=== PATIENT | male | born 1975 | race Caucasian/White ===

== ENCOUNTER 2023-02-09 18:31 | Inpatient (IN) ==
[2023-02-09 19:07] LABS: ALT 23 U/L (7-52); AST 36 U/L (13-39); Albumin/Globulin Ratio 0.9 (1-3); Alkaline Phosphatase 92 U/L (35-149); Anion Gap 7 mmol/L (2-16); Blood Urea Nitrogen 13 mg/dL (6-24); CO2 Carbon Dioxide 18 mmol/L (22-32); Chloride 116 mmol/L (101-111); Creatinine, Serum 1.02 mg/dL (0.67-1.17); Globulin 3.4 g/dL (2-4); Glucose 91 mg/dL (70-100); Potassium 3.7 mmol/L (3.5-5.0); Sodium 141 mmol/L (135-145); Total Protein 6.4 g/dL (6.4-8.9); eGFR CKD-EPI 92.4 (>60)
[2023-02-09 19:08] LABS: Hematocrit 35.1 % (38-53); Hemoglobin 12.2 g/dL (13.2-16.3); Mean Corpuscular Hemoglobin 32.9 pg (27-33); Mean Corpuscular Hgb Conc 34.8 g/dL (31-36); Mean Corpuscular Volume 94.5 fL (80-97); Red Blood Count 3.72 10^6/uL (4.06-5.63); Red Cell Distribution Width 15.8 % (12-17); White Blood Count 6.5 10^3/uL (3.6-10.2)
[2023-02-09 19:24] LABS: Acetaminophen < 15 mcg/mL; Salicylate < 2.50 mg/dL (<30)
[2023-02-09 19:28] LABS: Alcohol, S 553 mg/dL (<13)
[2023-02-09 19:29] LABS: ABS Basophils 0.1 10^3/uL (0.0-0.1); ABS Eosinophils 0.3 10^3/uL (0.0-0.5); ABS Lymphocytes 1.9 10^3/uL (1.0-4.8); ABS Monocytes 0.6 10^3/uL (0.0-1.1); ABS Neutrophils 3.6 10^3/uL (1.5-7.6); ABS Nucleated RBC 0.02 10^3/ul; Eosinophil % 4.3 %; Mean Platelet Volume 9.5 fL (7.5-11.2); Nucleated Red Blood Cells % 0.3 /100 WBC (0.0-0.4); Platelet Count 51 10^3/uL (150-450)
[2023-02-09] MEDS ORDERED: Rocuronium 50 mg VIAL 10 mg/ml 5 ml VIAL (50 mg) ONE (20:03)
[2023-02-09] MEDS ORDERED: Succinylcholine 200 mg VIAL 20 mg/ml 10 ml VIAL (200 mg) ONE (20:04)
[2023-02-09] MEDS ORDERED: Etomidate 20 mg/10 ml 2 MG/ML 10 ml VIAL IV ONE (20:20)
[2023-02-09] MEDS ORDERED: Succinylcholine 200 mg VIAL 20 mg/ml 10 ml VIAL (200 mg) IV ONE (20:20)
[2023-02-09] MEDS: Propofol 10 mg/ml 100 ML BTL 1,000 MG/100 ML BTL IV SCH (20:30)
[2023-02-09 20:52] LABS: Urine Appearance Clear; Urine Bilirubin Negative (Negative); Urine Blood 2+ (Negative); Urine Color Yellow; Urine Glucose Negative (Negative); Urine Ketones Negative (Negative); Urine Nitrite Negative (Negative); Urine Protein Negative (Negative); Urine Specific Gravity 1.004 (1.002-1.030); Urine Urobilinogen Negative (Negative)
[2023-02-09 20:54] LABS: Urine Bacteria Absent (Absent); Urine Red Blood Cell Trace(0-2/hpf) (Absent); Urine White Blood Cell Absent (Absent)
[2023-02-09] MEDS ORDERED: Folic Acid IV 1 MG in NS 0.9% 50 ML 50 ML IV ONE (20:56)
[2023-02-09] MEDS ORDERED: Thiamine 100 MG/ML 2 ml VIAL 250 MG in NS 0.9% 100 ml BAG 100 ML IV SCH ×2 (21:00→22:00)
[2023-02-09] MEDS ORDERED: Pantoprazole VIAL 40 MG VIAL IV SCH (21:00)
[2023-02-09 21:19] LABS: Urine Benzodiazepine Screen None Detected (None Detect); Urine Cannabinoids Screen Presumptive Positive (None Detect); Urine Opiates Screen None Detected (None Detect)
[2023-02-09 21:20] LABS: Magnesium 1.9 mg/dL (1.9-2.7)
[2023-02-09] MEDS ORDERED: Potassium Phosphate IV 15 MMOL in NS 0.9% 250 ml 250 ML IVPB ONE (21:28)
[2023-02-09 21:49] LABS: PCO2 Arterial 38 mmHg (35-45); PO2 Arterial 352 mmHg (80-100)
[2023-02-09 21:52] LABS: Activated Partial Thrombo Time 42.9 seconds (26.0-38.0); INR 1.65 (0.88-1.18)
[2023-02-09] MEDS ORDERED: Lactated Ringers 1000 ml BAG 1,000 ML IV SCH (23:00)
[2023-02-09] MEDS: Chlorhexidine MOUTHWASH 0.12% 15 ML UDC SWISH SPIT SCH (23:08)
[2023-02-10] MEDS: Enoxaparin 40 MG/0.4 ML SYR SUBCUT SCH ×2 (00:13→21:14)
[2023-02-10] MEDS: Propofol 10 mg/ml 100 ML BTL 1,000 MG/100 ML BTL IV SCH ×5 (00:48→22:05)
[2023-02-10] MEDS: Chlorhexidine MOUTHWASH 0.12% 15 ML UDC SWISH SPIT SCH ×6 (02:53→21:15)
[2023-02-10 04:22] LABS: ABS Basophils 0.1 10^3/uL (0.0-0.1); ABS Eosinophils 0.2 10^3/uL (0.0-0.5); ABS Lymphocytes 2.7 10^3/uL (1.0-4.8); ABS Monocytes 0.3 10^3/uL (0.0-1.1); ABS Neutrophils 4.3 10^3/uL (1.5-7.6); ABS Nucleated RBC 0.01 10^3/ul; Eosinophil % 2.7 %; Hematocrit 35.8 % (38-53); Hemoglobin 12.5 g/dL (13.2-16.3); Lymphocyte % 35.2 %; Mean Corpuscular Hemoglobin 33.3 pg (27-33); Mean Corpuscular Hgb Conc 34.9 g/dL (31-36); Mean Corpuscular Volume 95.2 fL (80-97); Mean Platelet Volume 9.7 fL (7.5-11.2); Nucleated Red Blood Cells % 0.1 /100 WBC (0.0-0.4); Platelet Count 68 10^3/uL (150-450); Red Blood Count 3.76 10^6/uL (4.06-5.63); Red Cell Distribution Width 16.2 % (12-17); White Blood Count 7.6 10^3/uL (3.6-10.2)
[2023-02-10 04:36] LABS: Albumin 2.9 g/dL (3.2-5.2); Albumin/Globulin Ratio 0.9 (1-3); Calcium 7.8 mg/dL (8.6-10.3); Creatinine, Serum 1.42 mg/dL (0.67-1.17); Globulin 3.4 g/dL (2-4); Phosphorus 6.3 mg/dL (2.5-5.0); Potassium 4.4 mmol/L (3.5-5.0); Total Bilirubin 3.7 mg/dL (0.2-1.0); Total Protein 6.3 g/dL (6.4-8.9); eGFR CKD-EPI 62.1 (>60)
[2023-02-10] MEDS ORDERED: Lactated Ringers 1000 ml BAG 1,000 ML IV ONE ×2 (04:36→10:49)
[2023-02-10] MEDS ORDERED: Lorazepam PYXIS KEY PRN (05:48)
[2023-02-10] MEDS ORDERED: LORazepam 2 mg VIAL 1 ml ONE (05:50)
[2023-02-10] MEDS: LORazepam 2 mg VIAL 1 ml IV PUSH PRN ×2 (05:53→19:58)
[2023-02-10] MEDS: Dexmedetomidine 1,000 MCG in NS 0.9% 250 ml 240 ML IV SCH (07:49)
[2023-02-10] MEDS ORDERED: Multivitamins/Minerals TAB PO SCH (09:00)
[2023-02-10 10:26] LABS: Resp Rate 16
[2023-02-10 10:29] LABS: PCO2 Arterial 35 mmHg (35-45); PO2 Arterial 84 mmHg (80-100)
[2023-02-10] MEDS: Multivitamins ADULT w/MIN LIQ 15 ML UDC PO SCH (10:43)
[2023-02-10] MEDS: Pantoprazole VIAL 40 MG VIAL IV SCH ×2 (11:35→21:14)
[2023-02-10] MEDS: Polyethylene Glycol 3350 17 GM PACKET PO SCH (11:35)
[2023-02-10] MEDS: Lactated Ringers 1000 ml BAG 1,000 ML IV SCH ×2 (12:03→18:04)
[2023-02-10] MEDS ORDERED: Folic Acid IV 1 MG in NS 0.9% 50 ML 50 ML IV SCH (14:00)
[2023-02-10] MEDS ORDERED: Thiamine 100 MG/ML 2 ml VIAL 100 MG in NS 0.9% 50 ML 50 ML IV SCH (14:00)
[2023-02-10 14:46] LABS: ABS Eosinophils 0.1 10^3/uL (0.0-0.5); ABS Lymphocytes 1.1 10^3/uL (1.0-4.8); ABS Monocytes 0.3 10^3/uL (0.0-1.1); ABS Neutrophils 1.8 10^3/uL (1.5-7.6); Eosinophil % 2.7 %; Hematocrit 30.3 % (38-53); Hemoglobin 10.6 g/dL (13.2-16.3); Lymphocyte % 31.2 %; Mean Corpuscular Volume 94.2 fL (80-97); Mean Platelet Volume 9.9 fL (7.5-11.2); Nucleated Red Blood Cells % 0.1 /100 WBC (0.0-0.4); Platelet Count 42 10^3/uL (150-450); Red Blood Count 3.21 10^6/uL (4.06-5.63); White Blood Count 3.4 10^3/uL (3.6-10.2)
[2023-02-10 14:59] LABS: Magnesium 1.7 mg/dL (1.9-2.7); Phosphorus 4.8 mg/dL (2.5-5.0)
[2023-02-10 15:00] LABS: Calcium 7.4 mg/dL (8.6-10.3); Creatinine, Serum 1.46 mg/dL (0.67-1.17); Potassium 4.3 mmol/L (3.5-5.0); eGFR CKD-EPI 60.1 (>60)
[2023-02-10] MEDS ORDERED: FOMEPIZOLE IV ONE (15:00)
[2023-02-10] MEDS ORDERED: NS 0.9% IV ONE (15:00)
[2023-02-10] MEDS: Thiamine 100 MG/ML 2 ml VIAL 100 MG in NS 0.9% 50 ML 50 ML IV SCH ×2 (16:13→21:15)
[2023-02-10] MEDS: Pyridoxine INJ 100 MG/ML VIAL IV SCH ×2 (16:26→21:32)
[2023-02-10 18:04] LABS: Osmolality Serum 404 mOsm/kg (275-295)
[2023-02-10] MEDS ORDERED: Phytonadione IV (Adult) 10 MG in NS 0.9% 50 ML 50 ML IV SCH (20:00)
[2023-02-10 20:35] LABS: INR 1.69 (0.88-1.18)
[2023-02-10 20:42] LABS: Albumin 2.5 g/dL (3.2-5.2); Albumin/Globulin Ratio 0.8 (1-3); Calcium 7.4 mg/dL (8.6-10.3); Creatinine, Serum 1.14 mg/dL (0.67-1.17); Globulin 3.1 g/dL (2-4); Potassium 4.2 mmol/L (3.5-5.0); Total Bilirubin 2.6 mg/dL (0.2-1.0); Total Protein 5.6 g/dL (6.4-8.9); eGFR CKD-EPI 80.8 (>60)
[2023-02-10] MEDS ORDERED: Pantoprazole VIAL 40 MG VIAL IV SCH (21:00)
[2023-02-10] MEDS: Senna TAB 8.6 mg TAB PO SCH (21:14)
[2023-02-10 21:23] LABS: Osmolality Serum 465 mOsm/kg (275-295)
[2023-02-11] MEDS: Lactated Ringers 1000 ml BAG 1,000 ML IV SCH ×2 (00:48→07:44)
[2023-02-11 01:27] LABS: Osmolality Serum 382 mOsm/kg (275-295)
[2023-02-11] MEDS: FOMEPIZOLE IV SCH ×2 (02:28→14:41)
[2023-02-11] MEDS: NS 0.9% IV SCH ×2 (02:28→14:41)
[2023-02-11] MEDS: Chlorhexidine MOUTHWASH 0.12% 15 ML UDC SWISH SPIT SCH ×6 (02:28→20:48)
[2023-02-11] MEDS: Pyridoxine INJ 100 MG/ML VIAL IV SCH ×4 (02:31→20:30)
[2023-02-11] MEDS: Thiamine 100 MG/ML 2 ml VIAL 100 MG in NS 0.9% 50 ML 50 ML IV SCH ×4 (03:10→20:30)
[2023-02-11 05:07] LABS: ABS Eosinophils 0.1 10^3/uL (0.0-0.5); ABS Lymphocytes 0.6 10^3/uL (1.0-4.8); ABS Monocytes 0.5 10^3/uL (0.0-1.1); ABS Neutrophils 3.5 10^3/uL (1.5-7.6); Eosinophil % 1.3 %; Hematocrit 29.9 % (38-53); Hemoglobin 10.7 g/dL (13.2-16.3); Lymphocyte % 12.4 %; Mean Corpuscular Hemoglobin 34.1 pg (27-33); Mean Corpuscular Hgb Conc 35.8 g/dL (31-36); Mean Corpuscular Volume 95.2 fL (80-97); Mean Platelet Volume 9.9 fL (7.5-11.2); Nucleated Red Blood Cells % 0.1 /100 WBC (0.0-0.4); Platelet Count 34 10^3/uL (150-450); Red Blood Count 3.14 10^6/uL (4.06-5.63); Red Cell Distribution Width 15.6 % (12-17); White Blood Count 4.7 10^3/uL (3.6-10.2)
[2023-02-11 05:23] LABS: Albumin 2.5 g/dL (3.2-5.2); Albumin/Globulin Ratio 0.8 (1-3); Calcium 7.3 mg/dL (8.6-10.3); Creatinine, Serum 0.96 mg/dL (0.67-1.17); Globulin 3.1 g/dL (2-4); Magnesium 1.6 mg/dL (1.9-2.7); Phosphorus 3.4 mg/dL (2.5-5.0); Total Bilirubin 2.9 mg/dL (0.2-1.0); Total Protein 5.6 g/dL (6.4-8.9); eGFR CKD-EPI 99.3 (>60)
[2023-02-11] MEDS ORDERED: Magnesium Sulf 4 GM/100 ML IV 4,000 MG/100 ML BAG IVPB ONE (05:28)
[2023-02-11] MEDS: Propofol 10 mg/ml 100 ML BTL 1,000 MG/100 ML BTL IV SCH ×2 (07:13→17:35)
[2023-02-11] MEDS ORDERED: Lactulose 30 ml UDC NG TUBE ONE (07:21)
[2023-02-11] MEDS: Pantoprazole VIAL 40 MG VIAL IV SCH ×2 (08:17→20:30)
[2023-02-11] MEDS: Polyethylene Glycol 3350 17 GM PACKET PO SCH (08:17)
[2023-02-11] MEDS: Multivitamins ADULT w/MIN LIQ 15 ML UDC PO SCH (08:17)
[2023-02-11] MEDS ORDERED: Lactated Ringers 1000 ml BAG 1,000 ML IV SCH (09:23)
[2023-02-11] MEDS: LORazepam 2 mg VIAL 1 ml IV PUSH PRN ×2 (12:34→21:22)
[2023-02-11] MEDS: Dexmedetomidine 1,000 MCG in NS 0.9% 250 ml 240 ML IV SCH (12:48)
[2023-02-11 14:33] LABS: INR 1.61 (0.88-1.18)
[2023-02-11] MEDS: Senna TAB 8.6 mg TAB PO SCH (20:30)
[2023-02-12] MEDS: LORazepam 2 mg VIAL 1 ml IV PUSH PRN ×4 (00:23→23:17)
[2023-02-12] MEDS: Chlorhexidine MOUTHWASH 0.12% 15 ML UDC SWISH SPIT SCH ×4 (01:14→16:12)
[2023-02-12] MEDS: Pyridoxine INJ 100 MG/ML VIAL IV SCH ×4 (03:18→20:49)
[2023-02-12] MEDS: Thiamine 100 MG/ML 2 ml VIAL 100 MG in NS 0.9% 50 ML 50 ML IV SCH ×4 (03:19→20:49)
[2023-02-12] MEDS: NS 0.9% IV SCH ×2 (03:21→15:38)
[2023-02-12] MEDS: FOMEPIZOLE IV SCH ×2 (03:21→15:38)
[2023-02-12] MEDS: Propofol 10 mg/ml 100 ML BTL 1,000 MG/100 ML BTL IV SCH (04:52)
[2023-02-12] MEDS: Dexmedetomidine 1,000 MCG in NS 0.9% 250 ml 240 ML IV SCH ×2 (05:07→18:30)
[2023-02-12 05:29] LABS: Hematocrit 29.2 % (38-53); Hemoglobin 10.5 g/dL (13.2-16.3); Mean Corpuscular Hgb Conc 36.1 g/dL (31-36); Mean Corpuscular Volume 94.2 fL (80-97); Mean Platelet Volume 9.3 fL (7.5-11.2); Platelet Count 26 10^3/uL (150-450); Red Cell Distribution Width 15.4 % (12-17); White Blood Count 3.3 10^3/uL (3.6-10.2)
[2023-02-12 05:34] LABS: INR 1.78 (0.88-1.18)
[2023-02-12 05:42] LABS: Albumin 2.4 g/dL (3.2-5.2); Albumin/Globulin Ratio 0.8 (1-3); Calcium 7.7 mg/dL (8.6-10.3); Creatinine, Serum 0.82 mg/dL (0.67-1.17); Globulin 3.2 g/dL (2-4); Phosphorus 2.1 mg/dL (2.5-5.0); Potassium 4.1 mmol/L (3.5-5.0); Total Bilirubin 2.9 mg/dL (0.2-1.0); Total Protein 5.6 g/dL (6.4-8.9); eGFR CKD-EPI 110.4 (>60)
[2023-02-12 05:51] LABS: ABS Eosinophils 0.1 10^3/uL (0.0-0.5); ABS Lymphocytes 0.6 10^3/uL (1.0-4.8); ABS Monocytes 0.4 10^3/uL (0.0-1.1); ABS Neutrophils 2.2 10^3/uL (1.5-7.6); Eosinophil % 3.5 %; Lymphocyte % 17.4 %; Nucleated Red Blood Cells % 0.1 /100 WBC (0.0-0.4)
[2023-02-12] MEDS: Multivitamins ADULT w/MIN LIQ 15 ML UDC PO SCH (08:20)
[2023-02-12] MEDS: Polyethylene Glycol 3350 17 GM PACKET PO SCH (08:20)
[2023-02-12] MEDS: Pantoprazole VIAL 40 MG VIAL IV SCH ×2 (08:20→20:21)
[2023-02-12] MEDS ORDERED: Furosemide 40 mg/4 ml IV VIAL IV ONE (10:23)
[2023-02-12] MEDS ORDERED: Lactulose 30 ml UDC PO ONE (10:24)
[2023-02-12] MEDS ORDERED: Potassium Phosphate IV 10 MMOL in NS 0.9% 250 ml 250 ML IVPB ONE (10:25)
[2023-02-12] MEDS ORDERED: Potassium Phosphate IV 15 MMOL in NS 0.9% 250 ml 250 ML IVPB ONE (10:26)
[2023-02-12] MEDS: Phytonadione Oral Solution 5 MG/25 ML UDC PO SCH ×2 (10:55→19:47)
[2023-02-12] MEDS ORDERED: Haloperidol 5 mg/ml SDV IV/IM 5 MG/ML AMP IM PRN (15:33)
[2023-02-12] MEDS ORDERED: Haloperidol 5 mg/ml SDV IV/IM 5 MG/ML AMP IVPB PRN (15:36)
[2023-02-12] MEDS ORDERED: Haloperidol 5 mg/ml SDV IV/IM 5 MG/ML AMP ONE (15:36)
[2023-02-12] MEDS: Senna TAB 8.6 mg TAB PO SCH (20:29)
[2023-02-12] MEDS ORDERED: Ondansetron 4 mg VIAL 2 MG/ML 2 ml VIAL IV PRN (23:27)
[2023-02-12] MEDS ORDERED: Ondansetron 4 mg VIAL 2 MG/ML 2 ml VIAL ONE (23:28)
[2023-02-13] MEDS: LORazepam 2 mg VIAL 1 ml IV PUSH PRN ×5 (01:32→21:59)
[2023-02-13] MEDS: Phytonadione Oral Solution 5 MG/25 ML UDC PO SCH (02:31)
[2023-02-13] MEDS ORDERED: Furosemide 40 mg/4 ml IV VIAL IV SLOW PU ONE (02:34)
[2023-02-13] MEDS: Thiamine 100 MG/ML 2 ml VIAL 100 MG in NS 0.9% 50 ML 50 ML IV SCH ×4 (02:43→20:28)
[2023-02-13] MEDS: Pyridoxine INJ 100 MG/ML VIAL IV SCH ×4 (02:45→20:29)
[2023-02-13] MEDS: Dexmedetomidine 1,000 MCG in NS 0.9% 250 ml 240 ML IV SCH ×2 (04:31→13:25)
[2023-02-13] MEDS: Phytonadione 10 mg in 50 mL NS over 30 min IV SCH ×2 (04:32→12:01)
[2023-02-13 04:43] LABS: ABS Eosinophils 0.1 10^3/uL (0.0-0.5); ABS Lymphocytes 0.9 10^3/uL (1.0-4.8); ABS Monocytes 0.3 10^3/uL (0.0-1.1); ABS Neutrophils 2.4 10^3/uL (1.5-7.6); Eosinophil % 3.7 %; Hematocrit 30.3 % (38-53); Mean Corpuscular Hemoglobin 34.3 pg (27-33); Mean Corpuscular Hgb Conc 36.3 g/dL (31-36); Mean Corpuscular Volume 94.5 fL (80-97); Mean Platelet Volume 10.5 fL (7.5-11.2); Platelet Count 37 10^3/uL (150-450); White Blood Count 3.8 10^3/uL (3.6-10.2)
[2023-02-13 04:46] LABS: INR 1.83 (0.88-1.18)
[2023-02-13 04:50] LABS: Calcium 7.5 mg/dL (8.6-10.3); Creatinine, Serum 0.91 mg/dL (0.67-1.17); Potassium 3.8 mmol/L (3.5-5.0); eGFR CKD-EPI 105.9 (>60)
[2023-02-13 05:07] LABS: Magnesium 1.5 mg/dL (1.9-2.7)
[2023-02-13] MEDS ORDERED: Magnesium Sulf 4 GM/100 ML IV 4,000 MG/100 ML BAG IVPB ONE ×2 (06:12→07:03)
[2023-02-13 06:28] LABS: Phosphorus 3.1 mg/dL (2.5-5.0)
[2023-02-13] MEDS ORDERED: Potassium Chlor 20 meq TAB.ER PO ONE (07:03)
[2023-02-13] MEDS: Multivitamins ADULT w/MIN LIQ 15 ML UDC PO SCH (09:14)
[2023-02-13] MEDS: Pantoprazole VIAL 40 MG VIAL IV SCH (09:17)
[2023-02-13] MEDS: Polyethylene Glycol 3350 17 GM PACKET PO SCH (09:21)
[2023-02-13] MEDS ORDERED: Pantoprazole VIAL 40 MG VIAL IV SCH (10:00)
[2023-02-13] MEDS ORDERED: NS 0.9% 1000 ml BAG 1,000 ML IV SCH (10:30)
[2023-02-13] MEDS ORDERED: LORazepam 2 mg VIAL 1 ml IV PUSH SCH (11:00)
[2023-02-13] MEDS: FOMEPIZOLE IV SCH (11:55)
[2023-02-13] MEDS: NS 0.9% IV SCH (11:55)
[2023-02-13] MEDS ORDERED: Senna TAB 8.6 mg TAB PO PRN (15:45)
[2023-02-13] MEDS: Lactulose 30 ml UDC NG TUBE SCH ×2 (16:57→20:29)
[2023-02-13 18:20] LABS: Calcium 7.7 mg/dL (8.6-10.3); Creatinine, Serum 0.95 mg/dL (0.67-1.17); Potassium 3.9 mmol/L (3.5-5.0); eGFR CKD-EPI 100.6 (>60)
[2023-02-13] MEDS ORDERED: Vancomycin 1,500 MG in NS 0.9% 250 ml 250 ML IVPB ONE (20:03)
[2023-02-13] MEDS ORDERED: LORazepam 2 mg VIAL 1 ml ONE (20:41)
[2023-02-13] MEDS ORDERED: LORazepam 2 mg VIAL 1 ml IV PUSH ONE (20:45)
[2023-02-13] MEDS ORDERED: Haloperidol 5 mg/ml SDV IV/IM 5 MG/ML AMP ONE (20:48)
[2023-02-13] MEDS ORDERED: Lactulose 30 ml UDC NG TUBE SCH (21:00)
[2023-02-13] MEDS ORDERED: Senna TAB 8.6 mg TAB PO SCH (21:00)
[2023-02-13] MEDS ORDERED: Lorazepam PYXIS KEY PRN (21:20)
[2023-02-13] MEDS ORDERED: Haloperidol 5 mg/ml SDV IV/IM 5 MG/ML AMP IM PRN (21:25)
[2023-02-14] MEDS: Dexmedetomidine 1,000 MCG in NS 0.9% 250 ml 240 ML IV SCH ×2 (00:45→12:30)
[2023-02-14] MEDS: Pyridoxine INJ 100 MG/ML VIAL IV SCH ×4 (03:09→21:30)
[2023-02-14] MEDS: Thiamine 100 MG/ML 2 ml VIAL 100 MG in NS 0.9% 50 ML 50 ML IV SCH ×4 (03:09→21:29)
[2023-02-14] MEDS: LORazepam 2 mg VIAL 1 ml IV PUSH PRN ×4 (03:26→21:30)
[2023-02-14 05:16] LABS: ABS Eosinophils 0.1 10^3/uL (0.0-0.5); ABS Lymphocytes 0.5 10^3/uL (1.0-4.8); ABS Monocytes 0.3 10^3/uL (0.0-1.1); ABS Neutrophils 1.7 10^3/uL (1.5-7.6); Eosinophil % 5.3 %; Hematocrit 28.1 % (38-53); Hemoglobin 9.9 g/dL (13.2-16.3); Lymphocyte % 20.5 %; Mean Corpuscular Hemoglobin 33.4 pg (27-33); Mean Corpuscular Hgb Conc 35.4 g/dL (31-36); Mean Corpuscular Volume 94.5 fL (80-97); Mean Platelet Volume 10.6 fL (7.5-11.2); Platelet Count 32 10^3/uL (150-450); Red Blood Count 2.97 10^6/uL (4.06-5.63); Red Cell Distribution Width 15.1 % (12-17); White Blood Count 2.7 10^3/uL (3.6-10.2)
[2023-02-14 05:21] LABS: INR 1.83 (0.88-1.18)
[2023-02-14 05:34] LABS: Calcium 7.5 mg/dL (8.6-10.3); Creatinine, Serum 0.87 mg/dL (0.67-1.17); Magnesium 1.8 mg/dL (1.9-2.7); Phosphorus 3.4 mg/dL (2.5-5.0); Potassium 3.9 mmol/L (3.5-5.0); eGFR CKD-EPI 108.4 (>60)
[2023-02-14] MEDS: Lactulose 30 ml UDC NG TUBE SCH ×3 (07:05→21:28)
[2023-02-14] MEDS: Multivitamins ADULT w/MIN LIQ 15 ML UDC PO SCH (07:05)
[2023-02-14] MEDS ORDERED: KCL 10 MEQ/50 ML IVPREMIX 10 MEQ/50 ML BAG IV ONE (07:16)
[2023-02-14] MEDS ORDERED: Magnesium Sulfate IV 3 GM in NS 0.9% 100 ml BAG 100 ML IVPB ONE (07:16)
[2023-02-14] MEDS: Polyethylene Glycol 3350 17 GM PACKET PO SCH (07:36)
[2023-02-14] MEDS: Pantoprazole VIAL 40 MG VIAL IV SCH (10:10)
[2023-02-14] MEDS ORDERED: Lactated Ringers 1000 ml BAG 1,000 ML IV ONE (10:11)
[2023-02-14] MEDS: NS 0.9% IV SCH ×3 (11:00→21:29)
[2023-02-14] MEDS: FOMEPIZOLE IV SCH ×3 (11:00→21:29)
[2023-02-14] MEDS: Metoclopramide 5 MG/ML VIAL (10 mg) IV SCH (11:25)
[2023-02-14 11:56] LABS: Alcohol, S < 13 mg/dL (<13)
[2023-02-14 12:20] LABS: Glucose 130 mg/dL (70-100)
[2023-02-14] MEDS ORDERED: Furosemide 20 mg/2 ml IV VIAL IV ONE (13:56)
[2023-02-14] MEDS: Haloperidol 5 mg/ml SDV IV/IM 5 MG/ML AMP IV SLOW PU PRN (17:50)
[2023-02-14] MEDS ORDERED: LORazepam 2 mg VIAL 1 ml IV PUSH ONE (18:13)
[2023-02-14] MEDS ORDERED: Lorazepam PYXIS KEY PRN (18:13)
[2023-02-15] MEDS: Metoclopramide 5 MG/ML VIAL (10 mg) IV SCH ×3 (01:15→22:26)
[2023-02-15] MEDS: LORazepam 2 mg VIAL 1 ml IV PUSH PRN (01:16)
[2023-02-15] MEDS: Pyridoxine INJ 100 MG/ML VIAL IV SCH ×4 (03:12→21:17)
[2023-02-15] MEDS: Thiamine 100 MG/ML 2 ml VIAL 100 MG in NS 0.9% 50 ML 50 ML IV SCH ×4 (03:12→21:45)
[2023-02-15] MEDS: Dexmedetomidine 1,000 MCG in NS 0.9% 250 ml 240 ML IV SCH (04:32)
[2023-02-15 05:17] LABS: Hematocrit 30.5 % (38-53); Hemoglobin 10.8 g/dL (13.2-16.3); Mean Corpuscular Hemoglobin 33.5 pg (27-33); Mean Corpuscular Hgb Conc 35.5 g/dL (31-36); Mean Corpuscular Volume 94.3 fL (80-97); Mean Platelet Volume 9.8 fL (7.5-11.2); Platelet Count 44 10^3/uL (150-450); Red Blood Count 3.23 10^6/uL (4.06-5.63); Red Cell Distribution Width 15.4 % (12-17)
[2023-02-15 05:21] LABS: INR 1.85 (0.88-1.18)
[2023-02-15] MEDS ORDERED: Furosemide 40 mg/4 ml IV VIAL IV ONE (05:28)
[2023-02-15 05:32] LABS: Albumin 2.5 g/dL (3.2-5.2); Albumin/Globulin Ratio 0.7 (1-3); Calcium 7.7 mg/dL (8.6-10.3); Creatinine, Serum 0.99 mg/dL (0.67-1.17); Globulin 3.4 g/dL (2-4); Magnesium 1.9 mg/dL (1.9-2.7); Phosphorus 3.7 mg/dL (2.5-5.0); Potassium 3.7 mmol/L (3.5-5.0); Total Protein 5.9 g/dL (6.4-8.9); eGFR CKD-EPI 95.7 (>60)
[2023-02-15 05:46] LABS: ABS Eosinophils 0.1 10^3/uL (0.0-0.5); ABS Lymphocytes 0.7 10^3/uL (1.0-4.8); ABS Monocytes 0.6 10^3/uL (0.0-1.1); ABS Neutrophils 5.5 10^3/uL (1.5-7.6); Eosinophil % 1.4 %; Lymphocyte % 10.6 %
[2023-02-15 06:00] LABS: PCO2 Arterial 39 mmHg (35-45); PO2 Arterial 77 mmHg (80-100)
[2023-02-15] MEDS: Lactulose 30 ml UDC NG TUBE SCH ×3 (06:06→22:26)
[2023-02-15] MEDS ORDERED: LORazepam 2 mg VIAL 1 ml IV PUSH PRN (06:28)
[2023-02-15] MEDS ORDERED: Lorazepam PYXIS KEY PRN (06:28)
[2023-02-15] MEDS ORDERED: Magnesium Sulfate 2 gm BAG 2 GM/50 ML BAG IVPB ONE (07:28)
[2023-02-15] MEDS: Multivitamins ADULT w/MIN LIQ 15 ML UDC PO SCH (08:05)
[2023-02-15] MEDS: Pantoprazole VIAL 40 MG VIAL IV SCH ×2 (08:12→19:35)
[2023-02-15] MEDS: Polyethylene Glycol 3350 17 GM PACKET PO SCH (08:19)
[2023-02-15] MEDS: Haloperidol 5 mg/ml SDV IV/IM 5 MG/ML AMP IV SLOW PU PRN (08:34)
[2023-02-15] MEDS: KCL 20 MEQ/100 ML IVPREMIX 20 MEQ/100 ML BAG IV SCH ×2 (09:10→11:30)
[2023-02-15 09:35] LABS: Anion Gap 6 mmol/L (2-16); Blood Urea Nitrogen 18 mg/dL (6-24); CO2 Carbon Dioxide 23 mmol/L (22-32); Calcium 7.7 mg/dL (8.6-10.3); Chloride 117 mmol/L (101-111); Glucose 124 mg/dL (70-100); Potassium 3.6 mmol/L (3.5-5.0); Sodium 146 mmol/L (135-145)
[2023-02-15 09:49] LABS: Alcohol, S < 13 mg/dL (<13)
[2023-02-15 10:38] LABS: eGFR CKD-EPI 84.4 (>60)
[2023-02-15 10:56] LABS: Osmolality Serum 319 mOsm/kg (275-295)
[2023-02-15] MEDS ORDERED: LORazepam 2 mg VIAL 1 ml IV PUSH SCH (11:26)
[2023-02-15] MEDS: FOMEPIZOLE IV SCH (11:38)
[2023-02-15] MEDS: NS 0.9% IV SCH (11:38)
[2023-02-15] MEDS ORDERED: Rocuronium 50 mg VIAL 10 mg/ml 5 ml VIAL (50 mg) ONE ×2 (12:06→17:59)
[2023-02-15] MEDS ORDERED: Etomidate 40 mg/20 ml (2 MG/ML) 20 ml VIAL (40 mg) ONE (12:06)
[2023-02-15] MEDS ORDERED: Piperacillin/Tazobac ADVAN 3.375 GM in NS 0.9% 100 ml BAG 100 ML IV ONE (13:49)
[2023-02-15] MEDS ORDERED: Vancomycin per Pharmacy 1 EA NOTE FOLLOW UP SCH (14:00)
[2023-02-15] MEDS ORDERED: Zosyn per Pharmacy NOTE FOLLOW UP SCH (14:00)
[2023-02-15] MEDS ORDERED: Vancomycin 1,250 MG in NS 0.9% 250 ml 250 ML IVPB ONE (14:15)
[2023-02-15] MEDS: Acetaminophen IV 1 GM/100ML 1,000 MG/100 ML BAG IV PRN (15:07)
[2023-02-15] MEDS ORDERED: Furosemide 20 mg/2 ml IV VIAL IV ONE (17:40)
[2023-02-15] MEDS ORDERED: Metoprolol Tartrate 5 mg VIAL 5 ml VIAL (1 mg/ml) ONE (17:43)
[2023-02-15] MEDS ORDERED: Furosemide 20 mg/2 ml IV VIAL ONE (17:43)
[2023-02-15] MEDS: Metoprolol Tartrate 5 mg VIAL 5 ml VIAL (1 mg/ml) IV PRN (17:44)
[2023-02-15] MEDS ORDERED: Propofol 10 mg/ml 100 ML BTL 1,000 MG/100 ML BTL ONE (18:00)
[2023-02-15 18:01] LABS: PCO2 Arterial 45 mmHg (35-45)
[2023-02-15 18:04] LABS: PO2 Arterial 54 mmHg (80-100)
[2023-02-15] MEDS: Propofol 10 mg/ml 100 ML BTL 1,000 MG/100 ML BTL IV SCH ×2 (18:15→22:55)
[2023-02-15] MEDS ORDERED: fentaNYL 100 mcg/2 ml 50 MCG/ML VIAL IV SLOW PU PRN (18:21)
[2023-02-15] MEDS: ZOSYN 3.375 GM Q8H per EXTENDED INFUSION IV SCH (18:51)
[2023-02-15] MEDS: Chlorhexidine MOUTHWASH 0.12% 15 ML UDC SWISH SPIT SCH ×2 (19:35→23:10)
[2023-02-15 21:00] LABS: Resp Rate 20
[2023-02-15 21:02] LABS: PCO2 Arterial 36 mmHg (35-45); PO2 Arterial 151 mmHg (80-100)
[2023-02-16] MEDS: Chlorhexidine MOUTHWASH 0.12% 15 ML UDC SWISH SPIT SCH ×6 (02:05→21:16)
[2023-02-16] MEDS: ZOSYN 3.375 GM Q8H per EXTENDED INFUSION IV SCH ×3 (02:30→17:40)
[2023-02-16] MEDS: Vancomycin 1,250 MG in NS 0.9% 250 ml 250 ML IVPB SCH ×2 (02:31→14:45)
[2023-02-16] MEDS: Thiamine 100 MG/ML 2 ml VIAL 100 MG in NS 0.9% 50 ML 50 ML IV SCH ×4 (02:38→21:16)
[2023-02-16] MEDS: Pyridoxine INJ 100 MG/ML VIAL IV SCH ×4 (02:40→21:48)
[2023-02-16 04:18] LABS: ABS Basophils 0.1 10^3/uL (0.0-0.1); ABS Eosinophils 0.2 10^3/uL (0.0-0.5); ABS Monocytes 1.1 10^3/uL (0.0-1.1); ABS Neutrophils 9.8 10^3/uL (1.5-7.6); Eosinophil % 1.3 %; Hematocrit 27.7 % (38-53); Hemoglobin 9.8 g/dL (13.2-16.3); Lymphocyte % 8.5 %; Mean Corpuscular Hemoglobin 33.5 pg (27-33); Mean Corpuscular Hgb Conc 35.3 g/dL (31-36); Mean Corpuscular Volume 94.7 fL (80-97); Mean Platelet Volume 8.8 fL (7.5-11.2); Platelet Count 55 10^3/uL (150-450); Red Blood Count 2.93 10^6/uL (4.06-5.63); Red Cell Distribution Width 15.3 % (12-17); White Blood Count 12.2 10^3/uL (3.6-10.2)
[2023-02-16] MEDS: Propofol 10 mg/ml 100 ML BTL 1,000 MG/100 ML BTL IV SCH ×4 (04:32→21:23)
[2023-02-16 04:33] LABS: Calcium 7.4 mg/dL (8.6-10.3); Creatinine, Serum 1.32 mg/dL (0.67-1.17); Magnesium 1.9 mg/dL (1.9-2.7); Phosphorus 3.1 mg/dL (2.5-5.0); Potassium 3.6 mmol/L (3.5-5.0); eGFR CKD-EPI 67.8 (>60)
[2023-02-16] MEDS: Lactulose 30 ml UDC NG TUBE SCH ×3 (05:25→17:47)
[2023-02-16] MEDS: Multivitamins ADULT w/MIN LIQ 15 ML UDC PO SCH (07:40)
[2023-02-16] MEDS: Polyethylene Glycol 3350 17 GM PACKET PO SCH (07:57)
[2023-02-16] MEDS: KCL 20 MEQ/100 ML IVPREMIX 20 MEQ/100 ML BAG IV SCH ×2 (08:00→10:05)
[2023-02-16] MEDS ORDERED: Magnesium Sulfate 2 gm BAG 2 GM/50 ML BAG IVPB ONE (09:41)
[2023-02-16] MEDS: Metoclopramide 5 MG/ML VIAL (10 mg) IV SCH ×2 (10:08→21:16)
[2023-02-16] MEDS: Enoxaparin 40 MG/0.4 ML SYR SUBCUT SCH (11:48)
[2023-02-16] MEDS ORDERED: Midazolam 2 mg/2 ml VIAL 1 mg/ml 2 ml VIAL (2 mg) ONE ×2 (13:17→13:40)
[2023-02-16] MEDS ORDERED: Midazolam 2 mg/2 ml VIAL 1 mg/ml 2 ml VIAL (2 mg) IV SLOW PU ONE ×2 (13:20→13:45)
[2023-02-16] MEDS: Acetaminophen IV 1 GM/100ML 1,000 MG/100 ML BAG IV PRN (15:25)
[2023-02-16] MEDS: Pantoprazole VIAL 40 MG VIAL IV SCH (17:39)
[2023-02-17] MEDS: Chlorhexidine MOUTHWASH 0.12% 15 ML UDC SWISH SPIT SCH ×6 (01:36→21:46)
[2023-02-17] MEDS: Lactulose 30 ml UDC NG TUBE SCH ×5 (01:36→21:46)
[2023-02-17] MEDS: ZOSYN 3.375 GM Q8H per EXTENDED INFUSION IV SCH ×3 (01:37→17:27)
[2023-02-17] MEDS: Vancomycin 1,250 MG in NS 0.9% 250 ml 250 ML IVPB SCH ×2 (01:39→15:43)
[2023-02-17] MEDS: Pyridoxine INJ 100 MG/ML VIAL IV SCH ×2 (01:41→09:41)
[2023-02-17] MEDS: Thiamine 100 MG/ML 2 ml VIAL 100 MG in NS 0.9% 50 ML 50 ML IV SCH ×2 (01:43→08:32)
[2023-02-17] MEDS: Propofol 10 mg/ml 100 ML BTL 1,000 MG/100 ML BTL IV SCH ×2 (03:14→10:42)
[2023-02-17 05:17] LABS: ABS Basophils 0.1 10^3/uL (0.0-0.1); ABS Eosinophils 0.5 10^3/uL (0.0-0.5); ABS Lymphocytes 1.2 10^3/uL (1.0-4.8); ABS Monocytes 0.9 10^3/uL (0.0-1.1); ABS Neutrophils 8.1 10^3/uL (1.5-7.6); ABS Nucleated RBC 0.04 10^3/ul; Eosinophil % 4.8 %; Hemoglobin 10.9 g/dL (13.2-16.3); Lymphocyte % 10.7 %; Mean Corpuscular Hemoglobin 33.4 pg (27-33); Mean Corpuscular Hgb Conc 35.1 g/dL (31-36); Mean Platelet Volume 9.1 fL (7.5-11.2); Nucleated Red Blood Cells % 0.3 /100 WBC (0.0-0.4); Platelet Count 67 10^3/uL (150-450); Red Blood Count 3.26 10^6/uL (4.06-5.63); White Blood Count 10.9 10^3/uL (3.6-10.2)
[2023-02-17] MEDS: Acetaminophen IV 1 GM/100ML 1,000 MG/100 ML BAG IV PRN ×2 (05:23→21:46)
[2023-02-17 05:38] LABS: Albumin 2.4 g/dL (3.2-5.2); Albumin/Globulin Ratio 0.7 (1-3); Calcium 7.6 mg/dL (8.6-10.3); Creatinine, Serum 1.18 mg/dL (0.67-1.17); Direct Bilirubin 2.2 mg/dL (0.03-0.18); Globulin 3.5 g/dL (2-4); Magnesium 2.3 mg/dL (1.9-2.7); Potassium 3.6 mmol/L (3.5-5.0); Total Bilirubin 4.2 mg/dL (0.2-1.0); Total Protein 5.9 g/dL (6.4-8.9); eGFR CKD-EPI 77.5 (>60)
[2023-02-17] MEDS: Multivitamins ADULT w/MIN LIQ 15 ML UDC PO SCH (08:04)
[2023-02-17] MEDS: Polyethylene Glycol 3350 17 GM PACKET PO SCH (08:05)
[2023-02-17] MEDS: KCL 20 MEQ/100 ML IVPREMIX 20 MEQ/100 ML BAG IV SCH ×2 (08:05→10:14)
[2023-02-17] MEDS ORDERED: NS 0.9% 1000 ml BAG 1,000 ML IV SCH (11:15)
[2023-02-17] MEDS: Metoclopramide 5 MG/ML VIAL (10 mg) IV SCH ×2 (12:09→21:47)
[2023-02-17] MEDS: Enoxaparin 40 MG/0.4 ML SYR SUBCUT SCH (12:09)
[2023-02-17] MEDS ORDERED: Vancomycin Trough Check NOTE FOLLOW UP ONE (14:30)
[2023-02-17] MEDS: Pantoprazole VIAL 40 MG VIAL IV SCH (17:27)
[2023-02-18] MEDS: Vancomycin 1000 MG in NS 0.9% 250 ML IVPB SCH ×3 (00:25→17:36)
[2023-02-18] MEDS: Lactulose 30 ml UDC NG TUBE SCH ×6 (00:26→21:34)
[2023-02-18] MEDS: Chlorhexidine MOUTHWASH 0.12% 15 ML UDC SWISH SPIT SCH ×6 (00:26→21:34)
[2023-02-18] MEDS: ZOSYN 3.375 GM Q8H per EXTENDED INFUSION IV SCH ×3 (00:31→17:39)
[2023-02-18] MEDS: Metoprolol Tartrate 5 mg VIAL 5 ml VIAL (1 mg/ml) IV PRN ×2 (02:33→19:35)
[2023-02-18 04:39] LABS: Hematocrit 30.8 % (38-53); Hemoglobin 10.9 g/dL (13.2-16.3); Mean Corpuscular Hemoglobin 34.1 pg (27-33); Mean Corpuscular Hgb Conc 35.2 g/dL (31-36); Mean Corpuscular Volume 96.9 fL (80-97); Mean Platelet Volume 9.1 fL (7.5-11.2); Platelet Count 59 10^3/uL (150-450); Red Blood Count 3.18 10^6/uL (4.06-5.63); Red Cell Distribution Width 16.3 % (12-17); White Blood Count 8.8 10^3/uL (3.6-10.2)
[2023-02-18 04:40] LABS: INR 1.79 (0.88-1.18)
[2023-02-18 04:46] LABS: Albumin 2.5 g/dL (3.2-5.2); Albumin/Globulin Ratio 0.7 (1-3); Calcium 7.6 mg/dL (8.6-10.3); Creatinine, Serum 1.12 mg/dL (0.67-1.17); Direct Bilirubin 2.3 mg/dL (0.03-0.18); Globulin 3.4 g/dL (2-4); Indirect Bilirubin 2.2 mg/dL (0.3-1.0); Phosphorus 3.4 mg/dL (2.5-5.0); Total Bilirubin 4.5 mg/dL (0.2-1.0); Total Protein 5.9 g/dL (6.4-8.9); eGFR CKD-EPI 82.6 (>60)
[2023-02-18] MEDS: Multivitamins ADULT w/MIN LIQ 15 ML UDC PO SCH (08:10)
[2023-02-18] MEDS: Polyethylene Glycol 3350 17 GM PACKET PO SCH (08:10)
[2023-02-18] MEDS ORDERED: Thiamine 100 MG/ML 2 ml VIAL 100 MG in NS 0.9% 50 ML 50 ML IV SCH (09:00)
[2023-02-18] MEDS: Metoclopramide 5 MG/ML VIAL (10 mg) IV SCH ×2 (10:04→21:35)
[2023-02-18] MEDS: Enoxaparin 40 MG/0.4 ML SYR SUBCUT SCH (10:04)
[2023-02-18] MEDS: Acetaminophen IV 1 GM/100ML 1,000 MG/100 ML BAG IV PRN (15:59)
[2023-02-18] MEDS: Pantoprazole VIAL 40 MG VIAL IV SCH (18:34)
[2023-02-18] MEDS ORDERED: Enalaprilat IV 1.25 mg/ml 2 ml VIAL (2.5 MG) IV ONE (20:46)
[2023-02-19] MEDS: Lactulose 30 ml UDC NG TUBE SCH ×6 (01:17→22:29)
[2023-02-19] MEDS: Metoprolol Tartrate 5 mg VIAL 5 ml VIAL (1 mg/ml) IV PRN (01:17)
[2023-02-19] MEDS: ZOSYN 3.375 GM Q8H per EXTENDED INFUSION IV SCH ×3 (01:20→19:34)
[2023-02-19] MEDS: Vancomycin 1000 MG in NS 0.9% 250 ML IVPB SCH ×3 (01:21→17:30)
[2023-02-19] MEDS: Chlorhexidine MOUTHWASH 0.12% 15 ML UDC SWISH SPIT SCH ×6 (01:22→22:29)
[2023-02-19] MEDS: Acetaminophen IV 1 GM/100ML 1,000 MG/100 ML BAG IV PRN (04:04)
[2023-02-19 05:03] LABS: Hematocrit 34.1 % (38-53); Hemoglobin 11.6 g/dL (13.2-16.3); Mean Corpuscular Hemoglobin 32.8 pg (27-33); Mean Corpuscular Volume 96.4 fL (80-97); Mean Platelet Volume 8.8 fL (7.5-11.2); Platelet Count 69 10^3/uL (150-450); Red Blood Count 3.54 10^6/uL (4.06-5.63); White Blood Count 12.9 10^3/uL (3.6-10.2)
[2023-02-19 05:17] LABS: Calcium 7.8 mg/dL (8.6-10.3); Creatinine, Serum 1.03 mg/dL (0.67-1.17); Magnesium 1.9 mg/dL (1.9-2.7); Phosphorus 4.2 mg/dL (2.5-5.0); Potassium 4.6 mmol/L (3.5-5.0); eGFR CKD-EPI 91.3 (>60)
[2023-02-19 05:21] LABS: ABS Basophils 0.1 10^3/uL (0.0-0.1); ABS Eosinophils 0.5 10^3/uL (0.0-0.5); ABS Lymphocytes 1.2 10^3/uL (1.0-4.8); ABS Neutrophils 10.1 10^3/uL (1.5-7.6); ABS Nucleated RBC 0.01 10^3/ul; Eosinophil % 3.9 %; Lymphocyte % 9.1 %; Nucleated Red Blood Cells % 0.1 /100 WBC (0.0-0.4)
[2023-02-19] MEDS: Multivitamins ADULT w/MIN LIQ 15 ML UDC PO SCH (09:20)
[2023-02-19] MEDS: Polyethylene Glycol 3350 17 GM PACKET PO SCH (09:21)
[2023-02-19] MEDS: Enoxaparin 40 MG/0.4 ML SYR SUBCUT SCH (09:21)
[2023-02-19] MEDS ORDERED: Vancomycin Trough Check NOTE FOLLOW UP ONE (09:30)
[2023-02-19 10:20] LABS: Vancomycin Trough 16.7 mcg/mL
[2023-02-19 11:36] LABS: Creatinine, Serum 1.01 mg/dL (0.67-1.17); eGFR CKD-EPI 93.5 (>60)
[2023-02-19] MEDS: Thiamine 100 MG/ML 2 ml VIAL 100 MG in NS 0.9% 50 ML 50 ML IV SCH (12:03)
[2023-02-19] MEDS: Metoclopramide 5 MG/ML VIAL (10 mg) IV SCH ×2 (12:04→22:29)
[2023-02-19] MEDS ORDERED: Furosemide 40 mg/4 ml IV VIAL IV ONE (12:30)
[2023-02-19] MEDS ORDERED: Furosemide 40 mg/4 ml IV VIAL ONE (12:33)
[2023-02-19] MEDS: Dexmedetomidine 1,000 MCG in NS 0.9% 250 ml 240 ML IV SCH (16:09)
[2023-02-19 17:50] LABS: Calcium 7.9 mg/dL (8.6-10.3); Creatinine, Serum 1.1 mg/dL (0.67-1.17); eGFR CKD-EPI 84.4 (>60)
[2023-02-19 17:51] LABS: Potassium 3.6 mmol/L (3.5-5.0)
[2023-02-19] MEDS: Pantoprazole VIAL 40 MG VIAL IV SCH (19:34)
[2023-02-20] MEDS: Lactulose 30 ml UDC NG TUBE SCH ×3 (02:23→08:31)
[2023-02-20] MEDS: Chlorhexidine MOUTHWASH 0.12% 15 ML UDC SWISH SPIT SCH ×6 (02:24→22:23)
[2023-02-20] MEDS: Vancomycin 1000 MG in NS 0.9% 250 ML IVPB SCH ×4 (02:24→18:05)
[2023-02-20] MEDS: ZOSYN 3.375 GM Q8H per EXTENDED INFUSION IV SCH ×3 (02:50→18:00)
[2023-02-20 04:52] LABS: Urine Appearance Cloudy; Urine Bilirubin Negative (Negative); Urine Blood 2+ (Negative); Urine Color Amber; Urine Glucose Negative (Negative); Urine Ketones Negative (Negative); Urine Nitrite Negative (Negative); Urine Protein 1+(30 mg/dL) (Negative); Urine Specific Gravity 1.035 (1.002-1.030); Urine Urobilinogen Positive (Negative)
[2023-02-20 04:58] LABS: Urine Bacteria Absent (Absent); Urine Red Blood Cell 3+(>10/hpf) (Absent); Urine White Blood Cell Trace(0-5/hpf) (Absent)
[2023-02-20 05:00] LABS: ABS Eosinophils 0.2 10^3/uL (0.0-0.5); ABS Lymphocytes 0.6 10^3/uL (1.0-4.8); ABS Monocytes 0.3 10^3/uL (0.0-1.1); ABS Neutrophils 3.5 10^3/uL (1.5-7.6); Hematocrit 28.6 % (38-53); Hemoglobin 10.3 g/dL (13.2-16.3); INR 2.12 (0.88-1.18); Lymphocyte % 13.5 %; Mean Corpuscular Hemoglobin 34.6 pg (27-33); Mean Corpuscular Volume 96.2 fL (80-97); Nucleated Red Blood Cells % 0.1 /100 WBC (0.0-0.4); Red Blood Count 2.97 10^6/uL (4.06-5.63); Red Cell Distribution Width 15.6 % (12-17); White Blood Count 4.8 10^3/uL (3.6-10.2)
[2023-02-20 05:06] LABS: Albumin 2.2 g/dL (3.2-5.2); Albumin/Globulin Ratio 0.6 (1-3); Calcium 7.7 mg/dL (8.6-10.3); Creatinine, Serum 1.11 mg/dL (0.67-1.17); Direct Bilirubin 1.8 mg/dL (0.03-0.18); Globulin 3.5 g/dL (2-4); Indirect Bilirubin 2.3 mg/dL (0.3-1.0); Magnesium 1.6 mg/dL (1.9-2.7); Potassium 3.5 mmol/L (3.5-5.0); Total Bilirubin 4.1 mg/dL (0.2-1.0); Total Protein 5.7 g/dL (6.4-8.9); eGFR CKD-EPI 83.5 (>60)
[2023-02-20 05:29] LABS: Mean Platelet Volume 8.8 fL (7.5-11.2); Platelet Count 33 10^3/uL (150-450)
[2023-02-20] MEDS: Dexmedetomidine 1,000 MCG in NS 0.9% 250 ml 240 ML IV SCH ×2 (05:50→20:34)
[2023-02-20] MEDS ORDERED: Magnesium Sulfate IV 3 GM in NS 0.9% 100 ml BAG 100 ML IVPB ONE (08:21)
[2023-02-20] MEDS: Multivitamins ADULT w/MIN LIQ 15 ML UDC PO SCH (08:31)
[2023-02-20] MEDS: Polyethylene Glycol 3350 17 GM PACKET PO SCH (09:22)
[2023-02-20] MEDS: Metoclopramide 5 MG/ML VIAL (10 mg) IV SCH ×3 (09:51→22:23)
[2023-02-20] MEDS ORDERED: RiFAXimin SUSP ORALSYR 20mg/mL PO SCH (10:00)
[2023-02-20] MEDS: KCL 20 MEQ/100 ML IVPREMIX 20 MEQ/100 ML BAG IV SCH ×3 (10:00→15:40)
[2023-02-20] MEDS: Thiamine 100 MG/ML 2 ml VIAL 100 MG in NS 0.9% 50 ML 50 ML IV SCH (10:55)
[2023-02-20] MEDS: Enoxaparin 40 MG/0.4 ML SYR SUBCUT SCH (11:06)
[2023-02-20] MEDS: RiFAXimin SUSP ORALSYR 20mg/mL PO SCH ×2 (12:04→22:23)
[2023-02-20 13:41] LABS: Hematocrit 29.5 % (38-53); Hemoglobin 10.3 g/dL (13.2-16.3); Mean Corpuscular Hemoglobin 33.6 pg (27-33); Mean Corpuscular Hgb Conc 34.8 g/dL (31-36); Mean Corpuscular Volume 96.5 fL (80-97); Mean Platelet Volume 8.3 fL (7.5-11.2); Platelet Count 39 10^3/uL (150-450); Red Blood Count 3.06 10^6/uL (4.06-5.63); Red Cell Distribution Width 15.5 % (12-17); White Blood Count 5.1 10^3/uL (3.6-10.2)
[2023-02-20] MEDS: Lactulose 300 ML for PR 200 GM/300 ML BTL PR SCH ×3 (13:49→22:19)
[2023-02-20] MEDS ORDERED: Vancomycin Trough Check NOTE FOLLOW UP ONE (14:30)
[2023-02-20] MEDS: Pantoprazole VIAL 40 MG VIAL IV SCH (18:01)
[2023-02-21] MEDS: Chlorhexidine MOUTHWASH 0.12% 15 ML UDC SWISH SPIT SCH ×4 (02:07→16:58)
[2023-02-21] MEDS: Vancomycin 1000 MG in NS 0.9% 250 ML IVPB SCH ×2 (02:07→08:50)
[2023-02-21] MEDS: ZOSYN 3.375 GM Q8H per EXTENDED INFUSION IV SCH ×3 (02:07→17:25)
[2023-02-21] MEDS: Metoclopramide 5 MG/ML VIAL (10 mg) IV SCH ×4 (04:21→21:23)
[2023-02-21 04:35] LABS: Hematocrit 30.1 % (38-53); Hemoglobin 10.8 g/dL (13.2-16.3); Mean Corpuscular Hemoglobin 34.2 pg (27-33); Mean Corpuscular Hgb Conc 35.9 g/dL (31-36); Mean Corpuscular Volume 95.2 fL (80-97); Mean Platelet Volume 8.3 fL (7.5-11.2); Platelet Count 34 10^3/uL (150-450); Red Blood Count 3.17 10^6/uL (4.06-5.63); Red Cell Distribution Width 15.7 % (12-17); White Blood Count 5.3 10^3/uL (3.6-10.2)
[2023-02-21 04:38] LABS: INR 2.09 (0.88-1.18)
[2023-02-21 04:49] LABS: Albumin 2.2 g/dL (3.2-5.2); Albumin/Globulin Ratio 0.6 (1-3); Calcium 8.2 mg/dL (8.6-10.3); Creatinine, Serum 1.09 mg/dL (0.67-1.17); Direct Bilirubin 1.6 mg/dL (0.03-0.18); Globulin 3.6 g/dL (2-4); Indirect Bilirubin 2.5 mg/dL (0.3-1.0); Potassium 3.8 mmol/L (3.5-5.0); Total Bilirubin 4.1 mg/dL (0.2-1.0); Total Protein 5.8 g/dL (6.4-8.9); eGFR CKD-EPI 85.3 (>60)
[2023-02-21] MEDS: RiFAXimin SUSP ORALSYR 20mg/mL PO SCH ×2 (07:25→21:58)
[2023-02-21] MEDS: Multivitamins ADULT w/MIN LIQ 15 ML UDC PO SCH (07:25)
[2023-02-21] MEDS: Polyethylene Glycol 3350 17 GM PACKET PO SCH ×3 (07:26→22:00)
[2023-02-21] MEDS: Thiamine 100 MG/ML 2 ml VIAL 100 MG in NS 0.9% 50 ML 50 ML IV SCH (07:30)
[2023-02-21] MEDS ORDERED: KCL 20 MEQ/100 ML IVPREMIX 20 MEQ/100 ML BAG IV ONE (07:38)
[2023-02-21] MEDS: Dexmedetomidine 1,000 MCG in NS 0.9% 250 ml 240 ML IV SCH (09:00)
[2023-02-21] MEDS ORDERED: Vancomycin Trough Check NOTE FOLLOW UP ONE (09:30)
[2023-02-21] MEDS: Lactulose 300 ML for PR 200 GM/300 ML BTL PR SCH ×3 (09:36→17:21)
[2023-02-21 12:21] LABS: Magnesium 1.9 mg/dL (1.9-2.7)
[2023-02-21] MEDS ORDERED: Magnesium Sulfate 2 gm BAG 2 GM/50 ML BAG IVPB ONE (13:23)
[2023-02-21] MEDS: Haloperidol 5 mg/ml SDV IV/IM 5 MG/ML AMP IV SLOW PU PRN ×2 (16:15→22:30)
[2023-02-21] MEDS: Acetaminophen IV 1 GM/100ML 1,000 MG/100 ML BAG IV PRN (19:04)
[2023-02-21] MEDS: Lactulose 30 ml UDC PO SCH (21:59)
[2023-02-22] MEDS: ZOSYN 3.375 GM Q8H per EXTENDED INFUSION IV SCH (02:04)
[2023-02-22] MEDS: Lactulose 30 ml UDC PO SCH ×4 (02:05→16:56)
[2023-02-22] MEDS: Acetaminophen IV 1 GM/100ML 1,000 MG/100 ML BAG IV PRN (02:40)
[2023-02-22] MEDS: Metoclopramide 5 MG/ML VIAL (10 mg) IV SCH ×4 (05:14→20:29)
[2023-02-22 05:24] LABS: ABS Lymphocytes 0.8 10^3/uL (1.0-4.8); ABS Monocytes 0.9 10^3/uL (0.0-1.1); ABS Nucleated RBC 0.02 10^3/ul; Eosinophil % 0.3 %; Hematocrit 32.9 % (38-53); Hemoglobin 11.5 g/dL (13.2-16.3); Lymphocyte % 6.7 %; Mean Corpuscular Hemoglobin 33.8 pg (27-33); Mean Corpuscular Hgb Conc 35.1 g/dL (31-36); Mean Corpuscular Volume 96.2 fL (80-97); Mean Platelet Volume 10.2 fL (7.5-11.2); Nucleated Red Blood Cells % 0.1 /100 WBC (0.0-0.4); Platelet Count 44 10^3/uL (150-450); Red Blood Count 3.42 10^6/uL (4.06-5.63); Red Cell Distribution Width 16.3 % (12-17); White Blood Count 11.7 10^3/uL (3.6-10.2)
[2023-02-22 05:36] LABS: Calcium 8.4 mg/dL (8.6-10.3); Creatinine, Serum 1.44 mg/dL (0.67-1.17); Magnesium 2.1 mg/dL (1.9-2.7); Potassium 3.6 mmol/L (3.5-5.0); eGFR CKD-EPI 61.1 (>60)
[2023-02-22] MEDS ORDERED: Vancomycin Random Level NOTE FOLLOW UP ONE (06:00)
[2023-02-22 06:02] LABS: Vancomycin Random 11.1 mcg/mL
[2023-02-22] MEDS ORDERED: Potassium Chloride LIQUID 20 MEQ/15 ML LIQUID NG TUBE ONE (07:27)
[2023-02-22] MEDS ORDERED: Lactated Ringers 1000 ml BAG 1,000 ML IV ONE (07:31)
[2023-02-22] MEDS: KCL 20 MEQ/100 ML IVPREMIX 20 MEQ/100 ML BAG IV SCH ×2 (08:30→11:15)
[2023-02-22] MEDS: Thiamine 100 MG/ML 2 ml VIAL 100 MG in NS 0.9% 50 ML 50 ML IV SCH (08:45)
[2023-02-22] MEDS: Polyethylene Glycol 3350 17 GM PACKET PO SCH ×2 (08:48→20:28)
[2023-02-22] MEDS: RiFAXimin SUSP ORALSYR 20mg/mL PO SCH ×2 (08:48→20:23)
[2023-02-22] MEDS: Multivitamins ADULT w/MIN LIQ 15 ML UDC PO SCH (08:48)
[2023-02-23] MEDS: Lactulose 30 ml UDC PO SCH ×3 (00:55→20:13)
[2023-02-23] MEDS: Metoclopramide 5 MG/ML VIAL (10 mg) IV SCH ×4 (05:28→21:18)
[2023-02-23 05:31] LABS: ABS Basophils 0.1 10^3/uL (0.0-0.1); ABS Eosinophils 0.3 10^3/uL (0.0-0.5); ABS Lymphocytes 1.5 10^3/uL (1.0-4.8); ABS Monocytes 0.9 10^3/uL (0.0-1.1); ABS Neutrophils 7.3 10^3/uL (1.5-7.6); ABS Nucleated RBC 0.02 10^3/ul; Eosinophil % 2.8 %; Hematocrit 32.5 % (38-53); Hemoglobin 11.2 g/dL (13.2-16.3); Lymphocyte % 14.7 %; Mean Corpuscular Hemoglobin 33.6 pg (27-33); Mean Corpuscular Hgb Conc 34.6 g/dL (31-36); Mean Corpuscular Volume 97.2 fL (80-97); Mean Platelet Volume 9.1 fL (7.5-11.2); Nucleated Red Blood Cells % 0.2 /100 WBC (0.0-0.4); Platelet Count 51 10^3/uL (150-450); Red Blood Count 3.34 10^6/uL (4.06-5.63)
[2023-02-23 05:35] LABS: Albumin 2.4 g/dL (3.2-5.2); Albumin/Globulin Ratio 0.6 (1-3); Calcium 8.3 mg/dL (8.6-10.3); Creatinine, Serum 1.1 mg/dL (0.67-1.17); Globulin 3.8 g/dL (2-4); Magnesium 1.7 mg/dL (1.9-2.7); Potassium 3.9 mmol/L (3.5-5.0); Total Bilirubin 4.5 mg/dL (0.2-1.0); Total Protein 6.2 g/dL (6.4-8.9); eGFR CKD-EPI 84.4 (>60)
[2023-02-23] MEDS ORDERED: Magnesium Sulfate 2 gm BAG 2 GM/50 ML BAG IVPB ONE (06:05)
[2023-02-23] MEDS ORDERED: Potassium Chloride LIQUID 20 MEQ/15 ML LIQUID PO ONE (07:49)
[2023-02-23] MEDS ORDERED: Magnesium Sulfate IV 3 GM in NS 0.9% 100 ml BAG 100 ML IVPB ONE (07:49)
[2023-02-23] MEDS ORDERED: Magnesium Sulfate IV 1 GM in NS 0.9% 100 ml BAG 100 ML IVPB ONE (08:25)
[2023-02-23] MEDS: Polyethylene Glycol 3350 17 GM PACKET PO SCH (08:29)
[2023-02-23] MEDS: Multivitamins ADULT w/MIN LIQ 15 ML UDC PO SCH (08:30)
[2023-02-23] MEDS: Thiamine 100 MG/ML 2 ml VIAL 100 MG in NS 0.9% 50 ML 50 ML IV SCH (08:33)
[2023-02-23] MEDS: RiFAXimin SUSP ORALSYR 20mg/mL PO SCH ×2 (08:38→20:13)
[2023-02-23] MEDS ORDERED: Pantoprazole VIAL 40 MG VIAL IV SCH (09:00)
[2023-02-23] MEDS ORDERED: Magnesium Sulfate 1 GM IV 1 GM/100 ML BAG IV ONE (09:00)
[2023-02-24] MEDS: Metoclopramide 5 MG/ML VIAL (10 mg) IV SCH ×4 (03:11→22:30)
[2023-02-24 04:46] LABS: ABS Basophils 0.1 10^3/uL (0.0-0.1); ABS Eosinophils 0.4 10^3/uL (0.0-0.5); ABS Lymphocytes 1.7 10^3/uL (1.0-4.8); ABS Monocytes 0.8 10^3/uL (0.0-1.1); ABS Neutrophils 7.7 10^3/uL (1.5-7.6); ABS Nucleated RBC 0.01 10^3/ul; Hematocrit 33.8 % (38-53); Hemoglobin 11.9 g/dL (13.2-16.3); Lymphocyte % 15.8 %; Mean Corpuscular Hgb Conc 35.3 g/dL (31-36); Mean Corpuscular Volume 96.3 fL (80-97); Mean Platelet Volume 8.9 fL (7.5-11.2); Nucleated Red Blood Cells % 0.1 /100 WBC (0.0-0.4); Platelet Count 57 10^3/uL (150-450); Red Blood Count 3.51 10^6/uL (4.06-5.63); Red Cell Distribution Width 17.7 % (12-17); White Blood Count 10.7 10^3/uL (3.6-10.2)
[2023-02-24 04:59] LABS: Albumin 2.4 g/dL (3.2-5.2); Albumin/Globulin Ratio 0.6 (1-3); Calcium 8.4 mg/dL (8.6-10.3); Creatinine, Serum 1.04 mg/dL (0.67-1.17); Magnesium 1.8 mg/dL (1.9-2.7); Potassium 4.1 mmol/L (3.5-5.0); Total Bilirubin 5.8 mg/dL (0.2-1.0); Total Protein 6.4 g/dL (6.4-8.9); eGFR CKD-EPI 90.2 (>60)
[2023-02-24] MEDS ORDERED: Magnesium Sulfate IV 1GM/100ML 1 GM/100 ML BAG IV ONE (06:23)
[2023-02-24] MEDS: RiFAXimin SUSP ORALSYR 20mg/mL PO SCH (08:54)
[2023-02-24] MEDS: Lactulose 30 ml UDC PO SCH (10:22)
[2023-02-24] MEDS: Multivitamins ADULT w/MIN LIQ 15 ML UDC PO SCH (10:57)
[2023-02-24] MEDS ORDERED: Haloperidol 5 mg/ml SDV IV/IM 5 MG/ML AMP IV SLOW PU ONE (16:57)
[2023-02-24] MEDS ORDERED: D5W 500 ml BAG 500 ML IV SCH (23:00)
[2023-02-25] MEDS: Metoclopramide 5 MG/ML VIAL (10 mg) IV SCH ×4 (04:28→21:13)
[2023-02-25 06:39] LABS: Hematocrit 31.9 % (38-53); Hemoglobin 11.2 g/dL (13.2-16.3); Mean Corpuscular Volume 97.1 fL (80-97); Mean Platelet Volume 8.5 fL (7.5-11.2); Platelet Count 42 10^3/uL (150-450); Red Blood Count 3.29 10^6/uL (4.06-5.63); Red Cell Distribution Width 17.5 % (12-17); White Blood Count 6.1 10^3/uL (3.6-10.2)
[2023-02-25 07:05] LABS: Calcium 8.2 mg/dL (8.6-10.3); Creatinine, Serum 0.99 mg/dL (0.67-1.17); Magnesium 1.5 mg/dL (1.9-2.7); Potassium 3.6 mmol/L (3.5-5.0); eGFR CKD-EPI 95.7 (>60)
[2023-02-25] MEDS ORDERED: Magnesium Sulfate IV 3 GM in NS 0.9% 100 ml BAG 100 ML IVPB ONE (07:42)
[2023-02-25 08:26] LABS: INR 2.3 (0.88-1.18)
[2023-02-25 08:36] LABS: Albumin 2.2 g/dL (3.2-5.2); Albumin/Globulin Ratio 0.6 (1-3); Direct Bilirubin 2.9 mg/dL (0.03-0.18); Globulin 3.5 g/dL (2-4); Indirect Bilirubin 2.8 mg/dL (0.3-1.0); Total Bilirubin 5.7 mg/dL (0.2-1.0); Total Protein 5.7 g/dL (6.4-8.9)
[2023-02-25] MEDS ORDERED: Enoxaparin 40 MG/0.4 ML SYR SUBCUT SCH (09:00)
[2023-02-25] MEDS: Lactulose 30 ml UDC PO SCH ×3 (10:22→21:12)
[2023-02-25] MEDS ORDERED: Lidocaine PATCH 5% PATCH TRANSDERM PRN (10:22)
[2023-02-26] MEDS: Metoclopramide 5 MG/ML VIAL (10 mg) IV SCH (04:10)
[2023-02-26 06:36] LABS: ABS Basophils 0.1 10^3/uL (0.0-0.1); ABS Eosinophils 0.5 10^3/uL (0.0-0.5); ABS Lymphocytes 1.6 10^3/uL (1.0-4.8); ABS Monocytes 0.9 10^3/uL (0.0-1.1); ABS Neutrophils 10.8 10^3/uL (1.5-7.6); ABS Nucleated RBC 0.02 10^3/ul; Eosinophil % 3.4 %; Hematocrit 33.6 % (38-53); Hemoglobin 11.7 g/dL (13.2-16.3); Lymphocyte % 11.5 %; Mean Corpuscular Hemoglobin 32.9 pg (27-33); Mean Corpuscular Hgb Conc 34.7 g/dL (31-36); Mean Corpuscular Volume 94.9 fL (80-97); Mean Platelet Volume 9.6 fL (7.5-11.2); Nucleated Red Blood Cells % 0.1 /100 WBC (0.0-0.4); Platelet Count 84 10^3/uL (150-450); Red Blood Count 3.55 10^6/uL (4.06-5.63); Red Cell Distribution Width 17.7 % (12-17); White Blood Count 13.9 10^3/uL (3.6-10.2)
[2023-02-26 06:40] LABS: INR 2.51 (0.88-1.18)
[2023-02-26 06:53] LABS: Albumin 2.1 g/dL (3.2-5.2); Albumin/Globulin Ratio 0.6 (1-3); Calcium 8.4 mg/dL (8.6-10.3); Creatinine, Serum 0.88 mg/dL (0.67-1.17); Globulin 3.8 g/dL (2-4); Magnesium 1.5 mg/dL (1.9-2.7); Total Bilirubin 7.3 mg/dL (0.2-1.0); Total Protein 5.9 g/dL (6.4-8.9); eGFR CKD-EPI 108.1 (>60)
[2023-02-26] MEDS ORDERED: Magnesium Sulfate IV 3 GM in NS 0.9% 100 ml BAG 100 ML IVPB ONE (08:03)
[2023-02-26] MEDS ORDERED: Metoclopramide 5 MG/ML VIAL (10 mg) IV PRN (09:08)
[2023-02-26] MEDS ORDERED: Piperacillin/Tazobac ADVAN 3.375 GM in NS 0.9% 100 ml BAG 100 ML IV ONE (09:41)
[2023-02-26] MEDS ORDERED: Simethicone SUSP ORALSYR 66.66 MG/ML PO ONE (09:54)
[2023-02-26] MEDS: Lactulose 30 ml UDC PO SCH ×5 (09:56→21:25)
[2023-02-26] MEDS ORDERED: Zosyn per Pharmacy NOTE FOLLOW UP SCH (10:00)
[2023-02-26] MEDS ORDERED: Vancomycin 1,000 MG in NS 0.9% 250 ml 250 ML IVPB ONE (13:50)
[2023-02-26] MEDS ORDERED: Vancomycin per Pharmacy 1 EA NOTE FOLLOW UP SCH (14:00)
[2023-02-26] MEDS: Enoxaparin 40 MG/0.4 ML SYR SUBCUT SCH (15:14)
[2023-02-26] MEDS: ZOSYN 3.375 GM Q8H per EXTENDED INFUSION IV SCH (17:06)
[2023-02-26] MEDS: Acetylcysteine INHALATION SOL 200 MG/ML NEB.SOLN 10 ML INH SCH (19:09)
[2023-02-26] MEDS: Albuterol/Ipratropium NEB.SOL (2.5/0.5 MG) 3 ML NEB.SOLN INH PRN (19:09)
[2023-02-26] MEDS: Vancomycin 1000 MG in NS 0.9% 250 ML IVPB SCH (22:36)
[2023-02-27] MEDS: Acetylcysteine INHALATION SOL 200 MG/ML NEB.SOLN 10 ML INH SCH (01:13)
[2023-02-27 01:37] LABS: PCO2 Arterial 38 mmHg (35-45); PO2 Arterial 76 mmHg (80-100)
[2023-02-27 01:56] LABS: Hematocrit 42.6 % (38-53); Hemoglobin 14.3 g/dL (13.2-16.3); Mean Corpuscular Hgb Conc 33.5 g/dL (31-36); Mean Corpuscular Volume 98.6 fL (80-97); Platelet Count 123 10^3/uL (150-450); Red Blood Count 4.32 10^6/uL (4.06-5.63); Red Cell Distribution Width 18.8 % (12-17); White Blood Count 26.7 10^3/uL (3.6-10.2)
[2023-02-27] MEDS ORDERED: Succinylcholine 200 mg VIAL 20 mg/ml 10 ml VIAL (200 mg) ONE ×2 (01:57→02:04)
[2023-02-27] MEDS ORDERED: Etomidate 40 mg/20 ml (2 MG/ML) 20 ml VIAL (40 mg) ONE (02:04)
[2023-02-27 02:22] LABS: Albumin 2.3 g/dL (3.2-5.2); Albumin/Globulin Ratio 0.5 (1-3); Calcium 8.4 mg/dL (8.6-10.3); Creatinine, Serum 1.23 mg/dL (0.67-1.17); Globulin 4.2 g/dL (2-4); Potassium 4.2 mmol/L (3.5-5.0); Total Bilirubin 9.3 mg/dL (0.2-1.0); Total Protein 6.5 g/dL (6.4-8.9); eGFR CKD-EPI 73.8 (>60)
[2023-02-27 02:29] LABS: Activated Partial Thrombo Time 42.4 seconds (26.0-38.0); INR 2.5 (0.88-1.18)
[2023-02-27 02:33] LABS: ABS Basophils 0.1 10^3/uL (0.0-0.1); ABS Eosinophils 0.3 10^3/uL (0.0-0.5); ABS Lymphocytes 1.2 10^3/uL (1.0-4.8); ABS Monocytes 0.9 10^3/uL (0.0-1.1); ABS Neutrophils 24.3 10^3/uL (1.5-7.6); ABS Nucleated RBC 0.05 10^3/ul; Eosinophil % 0.9 %; Lymphocyte % 4.4 %; Nucleated Red Blood Cells % 0.2 /100 WBC (0.0-0.4)
[2023-02-27] MEDS: Propofol 10 mg/ml 100 ML BTL 1,000 MG/100 ML BTL IV SCH (02:44)
[2023-02-27] MEDS: ZOSYN 3.375 GM Q8H per EXTENDED INFUSION IV SCH (02:53)
[2023-02-27 03:15] LABS: PCO2 Arterial 37 mmHg (35-45); PO2 Arterial 79 mmHg (80-100)
[2023-02-27] MEDS: Lactulose 30 ml UDC PO SCH ×4 (03:48→21:24)
[2023-02-27 05:51] LABS: Hematocrit 39.8 % (38-53); Hemoglobin 13.8 g/dL (13.2-16.3); Mean Corpuscular Hemoglobin 33.8 pg (27-33); Mean Corpuscular Hgb Conc 34.6 g/dL (31-36); Mean Corpuscular Volume 97.8 fL (80-97); Mean Platelet Volume 9.7 fL (7.5-11.2); Platelet Count 109 10^3/uL (150-450); Red Blood Count 4.07 10^6/uL (4.06-5.63); Red Cell Distribution Width 18.6 % (12-17); White Blood Count 26.1 10^3/uL (3.6-10.2)
[2023-02-27 05:52] LABS: ABS Basophils 0.1 10^3/uL (0.0-0.1); ABS Eosinophils 0.3 10^3/uL (0.0-0.5); ABS Lymphocytes 1.1 10^3/uL (1.0-4.8); ABS Neutrophils 23.6 10^3/uL (1.5-7.6); ABS Nucleated RBC 0.04 10^3/ul; Lymphocyte % 4.3 %; Nucleated Red Blood Cells % 0.1 /100 WBC (0.0-0.4)
[2023-02-27 05:56] LABS: INR 2.48 (0.88-1.18)
[2023-02-27] MEDS: Chlorhexidine MOUTHWASH 0.12% 15 ML UDC SWISH SPIT SCH ×5 (06:08→21:24)
[2023-02-27 06:09] LABS: Albumin 2.3 g/dL (3.2-5.2); Albumin/Globulin Ratio 0.6 (1-3); Calcium 8.5 mg/dL (8.6-10.3); Creatinine, Serum 1.39 mg/dL (0.67-1.17); Globulin 4.1 g/dL (2-4); Magnesium 2.1 mg/dL (1.9-2.7); Potassium 4.4 mmol/L (3.5-5.0); Total Bilirubin 9.3 mg/dL (0.2-1.0); Total Protein 6.4 g/dL (6.4-8.9); eGFR CKD-EPI 63.7 (>60)
[2023-02-27] MEDS ORDERED: Acetylcysteine INHALATION SOL 200 MG/ML NEB.SOLN 10 ML INH PRN (06:18)
[2023-02-27] MEDS: Enoxaparin 40 MG/0.4 ML SYR SUBCUT SCH (08:25)
[2023-02-27] MEDS: Pantoprazole VIAL 40 MG VIAL IV SCH (08:26)
[2023-02-27] MEDS: Vancomycin 1000 MG in NS 0.9% 250 ML IVPB SCH ×2 (08:45→17:30)
[2023-02-27] MEDS ORDERED: Tranexamic Acid 1,000 MG/10 ML SDV INH PRN (10:10)
[2023-02-27] MEDS: Metoclopramide 5 MG/ML VIAL (10 mg) IV SCH (10:24)
[2023-02-27] MEDS ORDERED: NORMOSOL-R pH 7.4 1000 mL BAG 1,000 ML IV SCH (11:00)
[2023-02-27] MEDS ORDERED: Acetylcysteine INH SOL (RT) 200 MG/ML 4 ML VIAL INH PRN (11:02)
[2023-02-27] MEDS: Albuterol/Ipratropium NEB.SOL (2.5/0.5 MG) 3 ML NEB.SOLN INH PRN ×3 (11:31→23:56)
[2023-02-27] MEDS: Meropenem 1 GM PREMIX(*) 1 GM/50 ML BAG IV SCH ×2 (13:39→21:12)
[2023-02-27] MEDS ORDERED: Vancomycin Trough Check NOTE FOLLOW UP ONE (14:30)
[2023-02-27] MEDS: Acetylcysteine INH SOL (RT) 200 MG/ML 4 ML VIAL INH SCH ×4 (14:47→23:57)
[2023-02-27] MEDS: Vancomycin 1,500 MG in NS 0.9% 250 ml 250 ML IVPB SCH (21:20)
[2023-02-28] MEDS: Chlorhexidine MOUTHWASH 0.12% 15 ML UDC SWISH SPIT SCH ×6 (02:48→20:56)
[2023-02-28] MEDS: Meropenem 1 GM PREMIX(*) 1 GM/50 ML BAG IV SCH ×3 (04:22→20:54)
[2023-02-28 05:49] LABS: ABS Basophils 0.1 10^3/uL (0.0-0.1); ABS Eosinophils 0.6 10^3/uL (0.0-0.5); ABS Lymphocytes 1.6 10^3/uL (1.0-4.8); ABS Monocytes 1.4 10^3/uL (0.0-1.1); ABS Neutrophils 15.5 10^3/uL (1.5-7.6); ABS Nucleated RBC 0.02 10^3/ul; Eosinophil % 3.4 %; Hematocrit 33.4 % (38-53); Hemoglobin 11.4 g/dL (13.2-16.3); Lymphocyte % 8.2 %; Mean Corpuscular Hemoglobin 33.4 pg (27-33); Mean Corpuscular Hgb Conc 34.3 g/dL (31-36); Mean Corpuscular Volume 97.4 fL (80-97); Mean Platelet Volume 9.8 fL (7.5-11.2); Nucleated Red Blood Cells % 0.1 /100 WBC (0.0-0.4); Platelet Count 78 10^3/uL (150-450); Red Blood Count 3.43 10^6/uL (4.06-5.63); Red Cell Distribution Width 18.9 % (12-17); White Blood Count 19.3 10^3/uL (3.6-10.2)
[2023-02-28 06:03] LABS: Albumin/Globulin Ratio 0.5 (1-3); Calcium 7.9 mg/dL (8.6-10.3); Creatinine, Serum 1.12 mg/dL (0.67-1.17); Globulin 3.8 g/dL (2-4); Magnesium 1.9 mg/dL (1.9-2.7); Total Protein 5.8 g/dL (6.4-8.9); eGFR CKD-EPI 82.6 (>60)
[2023-02-28] MEDS: Albuterol/Ipratropium NEB.SOL (2.5/0.5 MG) 3 ML NEB.SOLN INH PRN (07:08)
[2023-02-28] MEDS: Acetylcysteine INH SOL (RT) 200 MG/ML 4 ML VIAL INH SCH ×2 (07:08→12:44)
[2023-02-28] MEDS: Propofol 10 mg/ml 100 ML BTL 1,000 MG/100 ML BTL IV SCH (07:35)
[2023-02-28] MEDS ORDERED: Magnesium Sulfate 2 gm BAG 2 GM/50 ML BAG IVPB ONE (08:30)
[2023-02-28] MEDS: Lactulose 30 ml UDC PO SCH ×2 (10:02→21:47)
[2023-02-28] MEDS: Metoclopramide 5 MG/ML VIAL (10 mg) IV SCH (10:10)
[2023-02-28] MEDS: Pantoprazole VIAL 40 MG VIAL IV SCH (10:10)
[2023-02-28] MEDS: Enoxaparin 40 MG/0.4 ML SYR SUBCUT SCH (10:10)
[2023-02-28] MEDS: Vancomycin 1,500 MG in NS 0.9% 250 ml 250 ML IVPB SCH ×2 (10:40→20:56)
[2023-02-28] MEDS ORDERED: Acetylcysteine INH SOL (RT) 200 MG/ML 4 ML VIAL INH PRN (13:14)
[2023-03-01] MEDS: Chlorhexidine MOUTHWASH 0.12% 15 ML UDC SWISH SPIT SCH ×3 (04:13→10:27)
[2023-03-01 05:22] LABS: ABS Basophils 0.1 10^3/uL (0.0-0.1); ABS Eosinophils 0.4 10^3/uL (0.0-0.5); ABS Lymphocytes 1.1 10^3/uL (1.0-4.8); ABS Monocytes 0.8 10^3/uL (0.0-1.1); ABS Neutrophils 7.2 10^3/uL (1.5-7.6); ABS Nucleated RBC 0.01 10^3/ul; Eosinophil % 3.9 %; Hematocrit 33.4 % (38-53); Hemoglobin 11.5 g/dL (13.2-16.3); Mean Corpuscular Hemoglobin 33.7 pg (27-33); Mean Corpuscular Hgb Conc 34.4 g/dL (31-36); Mean Corpuscular Volume 97.9 fL (80-97); Mean Platelet Volume 9.8 fL (7.5-11.2); Nucleated Red Blood Cells % 0.1 /100 WBC (0.0-0.4); Platelet Count 70 10^3/uL (150-450); Red Blood Count 3.41 10^6/uL (4.06-5.63); Red Cell Distribution Width 20.6 % (12-17); White Blood Count 9.6 10^3/uL (3.6-10.2)
[2023-03-01 05:39] LABS: Albumin 2.1 g/dL (3.2-5.2); Albumin/Globulin Ratio 0.5 (1-3); Calcium 8.1 mg/dL (8.6-10.3); Creatinine, Serum 0.88 mg/dL (0.67-1.17); Globulin 3.9 g/dL (2-4); Magnesium 1.9 mg/dL (1.9-2.7); Potassium 4.2 mmol/L (3.5-5.0); Total Bilirubin 5.2 mg/dL (0.2-1.0); eGFR CKD-EPI 108.1 (>60)
[2023-03-01] MEDS: Meropenem 1 GM PREMIX(*) 1 GM/50 ML BAG IV SCH ×3 (05:46→20:08)
[2023-03-01] MEDS: Nicotine PATCH 14 MG/24 HR PATCH TRANSDERM SCH (06:26)
[2023-03-01] MEDS ORDERED: Vancomycin Trough Check NOTE FOLLOW UP ONE (08:30)
[2023-03-01] MEDS: Enoxaparin 40 MG/0.4 ML SYR SUBCUT SCH (10:27)
[2023-03-01] MEDS: Metoclopramide 5 MG/ML VIAL (10 mg) IV SCH (10:27)
[2023-03-01] MEDS: Lactulose 30 ml UDC PO SCH ×2 (10:27→20:08)
[2023-03-01] MEDS: Pantoprazole VIAL 40 MG VIAL IV SCH (10:27)
[2023-03-02] MEDS: Meropenem 1 GM PREMIX(*) 1 GM/50 ML BAG IV SCH ×3 (04:53→22:39)
[2023-03-02 06:03] LABS: ABS Basophils 0.1 10^3/uL (0.0-0.1); ABS Eosinophils 0.2 10^3/uL (0.0-0.5); ABS Lymphocytes 0.9 10^3/uL (1.0-4.8); ABS Monocytes 0.5 10^3/uL (0.0-1.1); ABS Neutrophils 3.7 10^3/uL (1.5-7.6); ABS Nucleated RBC 0.01 10^3/ul; Eosinophil % 4.1 %; Hematocrit 31.6 % (38-53); Lymphocyte % 17.2 %; Mean Corpuscular Hemoglobin 34.5 pg (27-33); Mean Corpuscular Hgb Conc 34.8 g/dL (31-36); Mean Platelet Volume 9.6 fL (7.5-11.2); Nucleated Red Blood Cells % 0.1 /100 WBC (0.0-0.4); Platelet Count 59 10^3/uL (150-450); Red Blood Count 3.19 10^6/uL (4.06-5.63); Red Cell Distribution Width 20.1 % (12-17); White Blood Count 5.3 10^3/uL (3.6-10.2)
[2023-03-02 06:18] LABS: Albumin 2.1 g/dL (3.2-5.2); Albumin/Globulin Ratio 0.5 (1-3); Creatinine, Serum 0.77 mg/dL (0.67-1.17); Globulin 3.9 g/dL (2-4); Magnesium 1.6 mg/dL (1.9-2.7); Phosphorus 3.1 mg/dL (2.5-5.0); Potassium 3.9 mmol/L (3.5-5.0); Total Bilirubin 5.4 mg/dL (0.2-1.0); eGFR CKD-EPI 112.5 (>60)
[2023-03-02] MEDS: Pantoprazole VIAL 40 MG VIAL IV SCH (08:12)
[2023-03-02] MEDS: Nicotine PATCH 14 MG/24 HR PATCH TRANSDERM SCH (08:13)
[2023-03-02] MEDS: Enoxaparin 40 MG/0.4 ML SYR SUBCUT SCH (08:13)
[2023-03-02] MEDS: Metoclopramide 5 MG/ML VIAL (10 mg) IV SCH (08:13)
[2023-03-02] MEDS: Lactulose 30 ml UDC PO SCH ×2 (08:13→20:02)
[2023-03-02] MEDS ORDERED: Magnesium Sulfate 2 gm BAG 2 GM/50 ML BAG IVPB ONE (08:45)
[2023-03-02] MEDS ORDERED: Benzocaine (plain) Lozenge 15 MG PO PRN (12:18)
[2023-03-02] MEDS ORDERED: Benzocaine/Menthol LOZ MT PRN (16:44)
[2023-03-02] MEDS: Eye Irrigation Solution 30 ML BOTTLE BOTH EYES SCH (22:40)
[2023-03-03 05:42] LABS: ABS Basophils 0.1 10^3/uL (0.0-0.1); ABS Eosinophils 0.2 10^3/uL (0.0-0.5); ABS Monocytes 0.5 10^3/uL (0.0-1.1); ABS Neutrophils 3.6 10^3/uL (1.5-7.6); ABS Nucleated RBC 0.01 10^3/ul; Eosinophil % 3.6 %; Hematocrit 29.4 % (38-53); Hemoglobin 10.2 g/dL (13.2-16.3); Lymphocyte % 18.7 %; Mean Corpuscular Hemoglobin 33.9 pg (27-33); Mean Corpuscular Hgb Conc 34.7 g/dL (31-36); Mean Corpuscular Volume 97.9 fL (80-97); Mean Platelet Volume 9.9 fL (7.5-11.2); Nucleated Red Blood Cells % 0.1 /100 WBC (0.0-0.4); Platelet Count 66 10^3/uL (150-450); Red Blood Count 3.01 10^6/uL (4.06-5.63); White Blood Count 5.4 10^3/uL (3.6-10.2)
[2023-03-03 05:50] LABS: Albumin 2.1 g/dL (3.2-5.2); Albumin/Globulin Ratio 0.6 (1-3); Calcium 8.2 mg/dL (8.6-10.3); Creatinine, Serum 0.8 mg/dL (0.67-1.17); Globulin 3.8 g/dL (2-4); Magnesium 1.6 mg/dL (1.9-2.7); Phosphorus 2.9 mg/dL (2.5-5.0); Potassium 4.1 mmol/L (3.5-5.0); Total Bilirubin 4.7 mg/dL (0.2-1.0); Total Protein 5.9 g/dL (6.4-8.9); eGFR CKD-EPI 111.2 (>60)
[2023-03-03] MEDS: Eye Irrigation Solution 30 ML BOTTLE BOTH EYES SCH ×3 (06:59→20:05)
[2023-03-03] MEDS: Lactulose 30 ml UDC PO SCH ×2 (08:46→20:19)
[2023-03-03] MEDS: Metoclopramide 5 MG/ML VIAL (10 mg) IV SCH (08:46)
[2023-03-03] MEDS: Enoxaparin 40 MG/0.4 ML SYR SUBCUT SCH (08:46)
[2023-03-03] MEDS: Nicotine PATCH 14 MG/24 HR PATCH TRANSDERM SCH (08:47)
[2023-03-03] MEDS: Pantoprazole VIAL 40 MG VIAL IV SCH (08:47)
[2023-03-04] MEDS: Eye Irrigation Solution 30 ML BOTTLE BOTH EYES SCH ×3 (04:02→20:56)
[2023-03-04 06:33] LABS: ABS Eosinophils 0.2 10^3/uL (0.0-0.5); ABS Lymphocytes 1.1 10^3/uL (1.0-4.8); ABS Monocytes 0.5 10^3/uL (0.0-1.1); ABS Neutrophils 4.1 10^3/uL (1.5-7.6); ABS Nucleated RBC 0.01 10^3/ul; Hematocrit 29.6 % (38-53); Hemoglobin 10.1 g/dL (13.2-16.3); Lymphocyte % 17.9 %; Mean Corpuscular Hemoglobin 33.7 pg (27-33); Mean Corpuscular Hgb Conc 34.2 g/dL (31-36); Mean Corpuscular Volume 98.4 fL (80-97); Mean Platelet Volume 9.2 fL (7.5-11.2); Nucleated Red Blood Cells % 0.2 /100 WBC (0.0-0.4); Platelet Count 66 10^3/uL (150-450); Red Blood Count 3.01 10^6/uL (4.06-5.63); Red Cell Distribution Width 20.4 % (12-17); White Blood Count 5.9 10^3/uL (3.6-10.2)
[2023-03-04 06:39] LABS: INR 2.25 (0.88-1.18)
[2023-03-04 06:51] LABS: Albumin 2.1 g/dL (3.2-5.2); Albumin/Globulin Ratio 0.6 (1-3); Calcium 8.2 mg/dL (8.6-10.3); Creatinine, Serum 0.71 mg/dL (0.67-1.17); Globulin 3.6 g/dL (2-4); Magnesium 1.4 mg/dL (1.9-2.7); Phosphorus 3.2 mg/dL (2.5-5.0); Potassium 4.2 mmol/L (3.5-5.0); Total Bilirubin 3.7 mg/dL (0.2-1.0); Total Protein 5.7 g/dL (6.4-8.9); eGFR CKD-EPI 115.3 (>60)
[2023-03-04] MEDS ORDERED: Magnesium Sulf 4 GM/100 ML IV 4,000 MG/100 ML BAG IVPB ONE (08:30)
[2023-03-04] MEDS: Lactulose 30 ml UDC PO SCH ×2 (09:17→20:52)
[2023-03-04] MEDS: Nicotine PATCH 14 MG/24 HR PATCH TRANSDERM SCH (09:20)
[2023-03-04] MEDS: Enoxaparin 40 MG/0.4 ML SYR SUBCUT SCH (09:21)
[2023-03-04] MEDS: Metoclopramide 5 MG/ML VIAL (10 mg) IV SCH (09:22)
[2023-03-05] MEDS: Eye Irrigation Solution 30 ML BOTTLE BOTH EYES SCH ×3 (05:31→21:32)
[2023-03-05 07:35] LABS: Albumin 2.2 g/dL (3.2-5.2); Albumin/Globulin Ratio 0.6 (1-3); Calcium 8.4 mg/dL (8.6-10.3); Creatinine, Serum 0.72 mg/dL (0.67-1.17); Globulin 3.8 g/dL (2-4); Magnesium 1.6 mg/dL (1.9-2.7); Potassium 4.2 mmol/L (3.5-5.0); Total Bilirubin 3.5 mg/dL (0.2-1.0); eGFR CKD-EPI 114.8 (>60)
[2023-03-05] MEDS ORDERED: Magnesium Sulf 4 GM/100 ML IV 4,000 MG/100 ML BAG IVPB ONE (08:00)
[2023-03-05 08:01] LABS: ABS Basophils 0.1 10^3/uL (0.0-0.1); ABS Eosinophils 0.3 10^3/uL (0.0-0.5); ABS Lymphocytes 1.1 10^3/uL (1.0-4.8); ABS Monocytes 0.5 10^3/uL (0.0-1.1); ABS Neutrophils 4.5 10^3/uL (1.5-7.6); Eosinophil % 4.4 %; Hematocrit 29.5 % (38-53); Hemoglobin 10.3 g/dL (13.2-16.3); Lymphocyte % 16.7 %; Mean Corpuscular Hemoglobin 34.6 pg (27-33); Mean Corpuscular Hgb Conc 34.8 g/dL (31-36); Mean Corpuscular Volume 99.4 fL (80-97); Mean Platelet Volume 9.5 fL (7.5-11.2); Nucleated Red Blood Cells % 0.1 /100 WBC (0.0-0.4); Platelet Count 69 10^3/uL (150-450); Red Blood Count 2.96 10^6/uL (4.06-5.63); Red Cell Distribution Width 20.2 % (12-17); White Blood Count 6.5 10^3/uL (3.6-10.2)
[2023-03-05] MEDS: Nicotine PATCH 14 MG/24 HR PATCH TRANSDERM SCH (09:46)
[2023-03-05] MEDS: Enoxaparin 40 MG/0.4 ML SYR SUBCUT SCH (09:46)
[2023-03-05] MEDS: Lactulose 30 ml UDC PO SCH ×2 (09:47→21:19)
[2023-03-05] MEDS: Metoclopramide 5 MG/ML VIAL (10 mg) IV SCH (09:47)
[2023-03-06 06:18] LABS: INR 1.98 (0.88-1.18)
[2023-03-06 06:19] LABS: ABS Basophils 0.1 10^3/uL (0.0-0.1); ABS Eosinophils 0.3 10^3/uL (0.0-0.5); ABS Lymphocytes 1.2 10^3/uL (1.0-4.8); ABS Monocytes 0.6 10^3/uL (0.0-1.1); ABS Neutrophils 4.6 10^3/uL (1.5-7.6); ABS Nucleated RBC 0.01 10^3/ul; Eosinophil % 4.9 %; Hematocrit 29.4 % (38-53); Hemoglobin 10.2 g/dL (13.2-16.3); Mean Corpuscular Hemoglobin 34.9 pg (27-33); Mean Corpuscular Hgb Conc 34.7 g/dL (31-36); Mean Corpuscular Volume 100.6 fL (80-97); Mean Platelet Volume 9.9 fL (7.5-11.2); Nucleated Red Blood Cells % 0.1 /100 WBC (0.0-0.4); Platelet Count 75 10^3/uL (150-450); Red Blood Count 2.92 10^6/uL (4.06-5.63); Red Cell Distribution Width 20.1 % (12-17); White Blood Count 6.8 10^3/uL (3.6-10.2)
[2023-03-06] MEDS: Eye Irrigation Solution 30 ML BOTTLE BOTH EYES SCH ×3 (06:28→23:58)
[2023-03-06 06:31] LABS: Albumin 2.2 g/dL (3.2-5.2); Albumin/Globulin Ratio 0.6 (1-3); Calcium 8.6 mg/dL (8.6-10.3); Creatinine, Serum 0.78 mg/dL (0.67-1.17); Globulin 3.7 g/dL (2-4); Potassium 4.6 mmol/L (3.5-5.0); Total Bilirubin 3.5 mg/dL (0.2-1.0); Total Protein 5.9 g/dL (6.4-8.9); eGFR CKD-EPI 112.1 (>60)
[2023-03-06 07:37] LABS: Magnesium 1.6 mg/dL (1.9-2.7)
[2023-03-06] MEDS ORDERED: Magnesium Sulf 4 GM/100 ML IV 4,000 MG/100 ML BAG IVPB ONE (07:39)
[2023-03-06] MEDS: Enoxaparin 40 MG/0.4 ML SYR SUBCUT SCH (08:28)
[2023-03-06] MEDS: Lactulose 30 ml UDC PO SCH ×2 (08:28→21:09)
[2023-03-06] MEDS: Nicotine PATCH 14 MG/24 HR PATCH TRANSDERM SCH (08:29)
[2023-03-06] MEDS: Metoclopramide 5 MG/ML VIAL (10 mg) IV SCH (08:29)
[2023-03-07 06:04] LABS: INR 2.12 (0.88-1.18)
[2023-03-07] MEDS: Eye Irrigation Solution 30 ML BOTTLE BOTH EYES SCH ×2 (06:07→14:16)
[2023-03-07 06:14] LABS: Albumin 2.2 g/dL (3.2-5.2); Albumin/Globulin Ratio 0.6 (1-3); Calcium 8.4 mg/dL (8.6-10.3); Creatinine, Serum 0.76 mg/dL (0.67-1.17); Globulin 3.6 g/dL (2-4); Potassium 4.4 mmol/L (3.5-5.0); Total Bilirubin 3.5 mg/dL (0.2-1.0); Total Protein 5.8 g/dL (6.4-8.9)
[2023-03-07] MEDS: Nicotine PATCH 14 MG/24 HR PATCH TRANSDERM SCH (07:46)
[2023-03-07] MEDS: Lactulose 30 ml UDC PO SCH ×2 (07:46→21:27)
[2023-03-07] MEDS: Metoclopramide 5 MG/ML VIAL (10 mg) IV SCH (07:47)
[2023-03-07 08:50] LABS: Magnesium 1.6 mg/dL (1.9-2.7)
[2023-03-07] MEDS: Enoxaparin 40 MG/0.4 ML SYR SUBCUT SCH (09:05)
[2023-03-07] MEDS ORDERED: Magnesium Sulfate 2 gm BAG 2 GM/50 ML BAG IVPB ONE (11:03)
[2023-03-08] MEDS: Eye Irrigation Solution 30 ML BOTTLE BOTH EYES SCH ×2 (01:12→05:22)
[2023-03-08 06:16] LABS: ABS Eosinophils 0.2 10^3/uL (0.0-0.5); ABS Lymphocytes 0.9 10^3/uL (1.0-4.8); ABS Monocytes 0.5 10^3/uL (0.0-1.1); ABS Neutrophils 3.1 10^3/uL (1.5-7.6); ABS Nucleated RBC 0.01 10^3/ul; Eosinophil % 5.2 %; Hematocrit 27.8 % (38-53); Hemoglobin 9.7 g/dL (13.2-16.3); Lymphocyte % 18.2 %; Mean Corpuscular Hemoglobin 35.3 pg (27-33); Mean Corpuscular Hgb Conc 34.9 g/dL (31-36); Mean Corpuscular Volume 100.9 fL (80-97); Mean Platelet Volume 10.4 fL (7.5-11.2); Nucleated Red Blood Cells % 0.1 /100 WBC (0.0-0.4); Platelet Count 64 10^3/uL (150-450); Red Blood Count 2.76 10^6/uL (4.06-5.63); Red Cell Distribution Width 19.7 % (12-17); White Blood Count 4.7 10^3/uL (3.6-10.2)
[2023-03-08 06:22] LABS: INR 1.97 (0.88-1.18)
[2023-03-08 06:30] LABS: Albumin 2.2 g/dL (3.2-5.2); Albumin/Globulin Ratio 0.6 (1-3); Calcium 8.2 mg/dL (8.6-10.3); Creatinine, Serum 0.85 mg/dL (0.67-1.17); Globulin 3.6 g/dL (2-4); Magnesium 1.6 mg/dL (1.9-2.7); Potassium 4.3 mmol/L (3.5-5.0); Total Bilirubin 3.4 mg/dL (0.2-1.0); Total Protein 5.8 g/dL (6.4-8.9); eGFR CKD-EPI 109.2 (>60)
[2023-03-08] MEDS: Lactulose 30 ml UDC PO SCH (08:54)
[2023-03-08] MEDS: Metoclopramide 5 MG/ML VIAL (10 mg) IV SCH (08:54)
[2023-03-08] MEDS: Nicotine PATCH 14 MG/24 HR PATCH TRANSDERM SCH (08:55)
[2023-03-08 09:34] VITALS: BP 125/70
== END 2023-03-08 10:30 | disposition home or self-care (01) | DRG 896 ==
LOC: ED 18:31 → SUATTDRO 20:43 → EDHOLD 20:43 → ICU 22:34 → MED 02-24 10:11 → ICU 02-27 01:49 → MED 03-03 19:16
PROVIDERS: ADMIT Internal Medicine; ATTEND Internal Medicine